=== PATIENT | male | born 1975 | race Caucasian/White ===

== ENCOUNTER 2017-11-18 15:48 | Inpatient (IN) | payer SELFPAY ==
--- NOTE | 2017-11-18 16:01 | EDPHY ---
H & P Time Seen by Provider: 11/18/17 16:01 Constitutional: Initial Vital Signs Temperature (C) 36.7 C 11/18/17 15:48 Heart Rate 103 H 11/18/17 15:48 Respiratory Rate 15 11/18/17 15:48 Blood Pressure 131/98 H 11/18/17 15:48 O2 Sat (%) 98 11/18/17 15:48 O2 Delivery Mode Room Air Allergies/Adverse Reactions: No Known Allergies Allergy (Unverified 11/18/17 15:57) Home Medications: Medication Instructions Recorded NK [No Known Home Meds] 11/18/17 Medical Decision Making ED Course/Re-evaluation: CHIEF COMPLAINT: Psychiatric evaluation HISTORY OF PRESENT ILLNESS: The patient is a 41 y/o male with psychiatric history who arrives from the [facility] on an M1 hold for grave disability. The M1 paperwork says the patient is "not able to care for himself, communicate effectively, and was recently refusing to eat. He presents as highly psychotic and delusional and unable to meet his essential needs at this time without assistance from others." He reports he has been in the senior living for 6 months for bradley offenses. He reports he has a history of a prior head injury and sinus issues. He goes on to tell me he has information about [place] on his phone and "I told them things of federal importance and they didn't question myself." He expresses concern that this is a "federal crisis." He denies recent injury, illness, or intoxicants. No acute medical complaints. REVIEW OF SYSTEMS: A comprehensive 10 system review of systems is otherwise negative aside from elements mentioned in the history of present illness and medical decision making. PHYSICAL EXAM: General Appearance: Alert, well hydrated, appropriate, and non-toxic appearing. Head: Atraumatic without scalp tenderness or obvious injury Eyes: Pupils equal, round, reactive to light and accommodation, EOMI, no trauma , no injection. Nose: Atraumatic, no rhinorrhea, clear. Throat: Mucus membranes moist. Neck: Supple, nontender, no lymphadenopathy. Respiratory: No retractions, no distress, no wheezes, and no accessory muscle use. Lungs are clear to auscultation bilaterally. Cardiovascular: Regular rate and rhythm, no murmurs, rubs, or gallops.Good capillary refill all extremities. Gastrointestinal: Abdomen is soft, nontender, non-distended, no masses, no rebound, no guarding, no peritoneal signs. Musculoskeletal: Normal active ROM of all extremities, atraumatic. Neurological: Alert, appropriate, and interactive. The patient has non-focal cranial nerves, motor, sensory, and cerebellar exam. Skin: No rashes, good turgor, no nodules on palpation. Past medical history: Psychiatric history, head injury Past surgical history: Noncontributory Family history: Noncontributory Social history: Has been in [facility] [place] senior living for last 6 months. Transient. DIFFERENTIAL DIAGNOSIS: The differential diagnosis for the patient's depression included but was not limited to functional and major depression, situational depression, medication side effect, drugs, and alcohol abuse. MEDICAL DECISION MAKING: Patient is in no acute distress and is hemodynamically stable. We are awaiting psychiatric team's evaluation. Patient has known history of psychiatric disorders and is here for evaluation. (Jose Rios) 2100: Discussed case with Psychiatric Services. She reports that the patient is psychotic. Dr. Archibald refuses the patient because "he can't get any information" on the patient. Per report, the senior living does not have information regarding the patient's psychiatric history and there is no psychiatric history in electronic health record. Dr. Maradiaga felt the patient could go back to senior living. However, senior living sent the patient to the emergency department because they were unable to care for the patient. Patient received Zyprexa orally in the emergency department. Patient will be re -evaluated by Psychiatric Services after the medication is given time to take effect. (Lynette Gillette) 0733: Patient resting comfortably. Here with psychosis, delusions. Patient had mental health evaluation. Patient was given Zyprexa earlier in the emergency department. He has been sleeping throughout the evening. Patient is pending mental health placement possibly [facility] later today. Signed over at 7: 00 a.m. Shift change to Dr. Desai. (Jakob Tolbert) - Data Points Laboratory Results: Laboratory Results 11/18/17 16:10 11/18/17 16:10 Medications Given: Discontinued Medications Olanzapine (Zyprexa Zydis) 10 mg PO EDNOW ONE Stop: 11/18/17 20:37 Last Admin: 10/12/18 20:44 Dose: 10 mg Departure - Departure Clinical Impression: Psychosis Qualifiers: Psychosis type: other Qualified Code(s): F28 - Other psychotic disorder not due to a substance or known physiological condition Condition: Good Referrals: NONE *PRIMARY CARE P,. [Primary Care Provider] - As per Instructions Report Scribed for: Jose Rios Report Scribed by: Bertha Carter Date of Report: 11/18/17 Time of Report: 16:12
[2017-11-18 16:23] LABS: PLATELET COUNT 248 10^3/uL (150-400)
[2017-11-18] MEDS ORDERED: OLANZapine DISINTEGR 10 MG TAB PO ONE (20:36)
--- NOTE | 2017-11-18 21:32 | ASMTLCPROG ---
Notes Note: Notes: Met with Patient and patient was unable to communicate due to being highly psychotic and delusional. Pt is unable to answer any questions, he is angry and threatening. Called P and they had no record of patient. Called [facility] and left a message for nurse requesting information on mental health history while PT has been at [facility]. Called on-call Psychiatrist, Dr. Archibald who said he wouldn't admit him to [address] [place] [address] here was more information on why he was at the ED, and what his baseline is. PT is in ED and will stay there until more information is obtained so he can be assessed. Date Signed: 11/18/2017 09:31 PM Electronically Signed By:Analy Graves
--- NOTE | 2017-11-19 07:21 | ASMTLCPROG ---
Notes Note: Notes: Met with this pt this morning. He is alert and oriented to place. His speech is clear but he cannot seem to provide much information about himself except to say he does not have a mental illness but had a bad head injury several years ago. Pt denies S/I, H/I.Denies A/H orV/H but does seem to be quite delusional about having information for the government from [facility] and that all his problems stem from the head injury. I spoke with the officer at the custodial who was able to say that pt had been in and out of custodial since July 2017 and was picked up for a failure to appear following a charge of "trying to influence others." From the record, it appeared that in September [facility] became involved, but I re-checked with [facility] and they have no record pertaining to this pt. I will speak to the Mental Health Team from the [facility] after their arrival to the office at 8:30. Date Signed: 11/19/2017 07:21 AM Electronically Signed By:Haley Obregon
--- NOTE | 2017-11-19 09:05 | ASMTLCPROG ---
Notes Note: Notes: Spoke with Mental Health Coordinator at the [facility]. She reports that she sent over notes on this pt but I am unable to locate them. She will fax notes directly to me. Basically, this pt has been in the [facility] for the past 6 months on very minor charges. He appears to be gravely disabled -psychotic and delusional but has refused medication and any treatment. his time in [facility] was up and the team sent him to the ED on an M-1 as he is gravely disabled. They were unable to obtain any collateral information from any source. Date Signed: 11/19/2017 09:04 AM Electronically Signed By:Haley Obregon
--- NOTE | 2017-11-19 09:38 | ASMTTLCEVL ---
[facility] Evaluation - Basic Information Evaluation Start Date and 11/19/2017 06:40 AM Time Hospital Status Answers: M1 Hold 72-hr M1 Hold Start Date 11/18/2017 02:55 PM and Time Patient statement Notes: "I have a head injury" Narrative Notes: This 41 y/o, , transient male was brought to the [facility] from [facility] - pt reports that he had been picked up because he was living on a bench. Snf staff determined that pt was gravely disabled - unable to care for himself, communicate meaningfully and refusing to eat. Pt has been in [facility]cc since July and appparently has refused medication, treatment and has not been eating. he has been observed responding to internal stimuli and appeared to be deeply psychotic and delusional. Diagnosis History Notes: unknown Prior suicide attempts Notes: pt denies Prior hospitalizations Notes: pt denies Treatment Responses Notes: unknown - has been refusing treatment and medication History of violence Notes: unknown - though [facility] personnel believes that he s not a threat to others Medications (name, dosage, route, freq uency) Notes: none Allergies/Reaction Notes: unknown Sleep Notes: pt reports that he is able to sleep Appetite Notes: Has refused to eat at times Medical/Surgical history Notes: Pt reports that he had a severe head injury several years ago Substance use history (frequency, intensity, his tory, duration) Notes: unknown - current u-tox is negative for all substances Family composition Notes: Pt reports that mother is . He reports some contact with father but does not know where he is or how to contact him Need for family Answers: No participation in patient's care Family psychiatric/substance abuse history Notes: unknown Developmental history Notes: Pt reports that he was born in [place] and graduated HS in [place] Marital status/children Notes: not , no children Living situation Notes: homeless Sexual history/orientation Notes: Unknown Peer support/family strengths Notes: Apppears to have no support Education level/history Notes: HS graduate - some college in [place] Work history Notes: Unknown Notes: Unknown Legal Notes: no pending charges Congregation/Spiritual Notes: Unknown Leisure Notes: Unknown Collateral Notes: Mental Gigi Team at the [facility] [phone] TLC Evaluation - Mental Status Exam Appearance: Answers: Unclean Unkempt Eye Contact: Answers: Avoiding Mood: Answers: Euthymic Affect: Answers: Distracted Suspicious Behavior: Answers: Cooperative Suspicious Speech: Answers: Clear Circumstantial Loose Associations Thought Process: Answers: Disorganized Oriented Loose Associations Paranoid Insight: Answers: Poor Judgement: Answers: Poor Delusions: Answers: Grandiose Paranoid Ideation Pt reported to have Answers: No suicidal/self-injuring ideation/behavior? Pt reported to be making Answers: No suicidal/self-injuring threats? Pt reported to have Answers: No aggression/assault ideation/behavior? Pt reported to be making Answers: No aggression/assault threats? Pt exhibits inability to Answers: Yes care for self/grave disability? Ideation/behavior is Answers: Yes chronic? TLC Evaluation - Suicide/Homicide Risk Suicide Risk Factors: Answers: < 20 or > 40 Years of Age Eating Disorders Financial Difficulties Inadequate Social Support Lack of Social Support Lack/Loss of Employment Psychotic Disorder Schizoaffective Disorder Homicide/violence risk Answers: Paranoid Ideation factors: Current Suicidal Answers: No Ideation? Current Suicidal Ideation Answers: No in the Past 48 Hours? Current Suicidal Ideation Answers: No in the Past Month? Suicide Internal Answers: None Protective Factors: Suicide External Answers: None Protective Factors: Ranking of patient's Answers: Low suicidal risk: Ranking of patient's Answers: Low homicidal risk: TLC Evaluation - Wrap-up AXIS I Diagnosis (include DSM-V and ICD-10 codes), must also be entered in [employer], which is the source of truth. Notes: 295.90 (F20.9) Schizophrenia Evaluation End Date and 11/19/2017 09:40 AM Time (HH:MM): Date Signed: 11/19/2017 09:37 AM Electronically Signed By:Haley Obregon
--- NOTE | 2017-11-19 10:09 | ASMTTCLDSP ---
TLC Discharge Disposition Disposition: Answers: Admit Disposition Notes: Notes: In consutation with ED MD, Dr. Gustavo Desai and economic history teacher psychiatrist, Dr Lan Archibald, both concurred that pt appears to meet the 27-65 criteria requiring in-pt psychiatric hospitalization as pt appears to be gravely disabled due to a mental illness condition. For inpatient Lan Archibald MD admission, the following psychiatrist agreed to accept patient for admission to Behavioral [facility] ([facility]): Type of Hold: Answers: M1/72-hour Hold Hold initiated by: Answers: Police Date Signed: 11/19/2017 10:09 AM Electronically Signed By:Haley Obregon
[2017-11-19] MEDS ORDERED: OLANZapine DISINTEGR 5 MG TAB ONE (13:44)
[2017-11-19] MEDS ORDERED: LORazepam 1 MG TAB ONE (13:45)
[2017-11-19] MEDS ORDERED: LORazepam 1 MG TAB PO ONE (14:00)
[2017-11-19] MEDS ORDERED: OLANZapine DISINTEGR 10 MG TAB PO ONE (14:00)
[2017-11-19] MEDS ORDERED: MAGNESIUM HYDROXIDE 30 ML UDCUP PO PRN (16:23)
[2017-11-19] MEDS ORDERED: ACETAMINOPHEN 325 MG TAB PO PRN (16:23)
[2017-11-19] MEDS ORDERED: NICOTINE POLACRILEX 2 MG GUM B PRN (16:23)
[2017-11-19] MEDS ORDERED: MAG HYDROX/AL HYDROX/SIMETH 30 ML UDCUP PO PRN (16:23)
[2017-11-19] MEDS: OLANZapine 10 MG TAB PO SCH (21:56)
[2017-11-19] MEDS: LORazepam 0.5 MG TAB PO PRN (21:56)
[2017-11-20] MEDS: OLANZapine DISINTEGR 10 MG TAB PO PRN (08:25)
[2017-11-20] MEDS: LORazepam 0.5 MG TAB PO PRN ×2 (08:25→20:35)
--- NOTE | 2017-11-20 09:40 | ASMTBHMTP ---
Master Treatment Plan Master Treatment Plan Answers: Impaired Reality for: Date: 11/20/2017 Diagnosis on Admission: Schizophrenia Expected length of stay: 3-5 Days Reason for admission: Notes: Per TLC Evaluation - This 44 year old, , transient male was brought to the [facility] from [facility] - pt reports that he had been picked up because he was living on a bench. [facility] staff determined that pt was gravely disabled - unable to care for himself, communicate meaningfully and refusing to eat. Pt. has been in half-way since July and apparently has refused medication, treatment and has not been eating. He has been observed responding to internal stimuli and appeared to be deeply psychotic and delusional. Patient's stated presenting problems: Notes: Severe head injury in 2007 Patient's goals for treatment: Notes: Not sure Patient's strengths: Notes: Polite Identify supports outside of hospital: Notes: No one Discharge criteria: Notes: Psychotic symptoms will be reduced or eliminated with return to baseline functioning in affect, thinking and behavior prior to discharge. Initial disposition plan/considerations: Notes: [place]eds [place] travel [place] due to the weather Master Treatment Plan Required Signatures Psychiatrist signature: Answers: Lan Archibald MD: RN on-shift signature: Answers: RN: Patient signature: Answers: Patient: Date Signed: 11/20/2017 09:39 AM Electronically Signed By:Sara Durán
--- NOTE | 2017-11-20 14:48 | PDGENHP ---
History and Physical - Chief Complaint Acute paranoid delusions - History of Present Illness Primary care provider: None HPI: 41-year-old male presents to the emergency department from intermediate on an M1 hold after exhibiting gradual onset of pervasive paranoid delusions characterized as concerns about the Federal government, [place], and associated with refusal to consume solids or liquids. The intermediate staff felt like the patient was unable to perform activities of daily living and was unsafe to be kept at the intermediate without additional mental health care. Upon my evaluation of the patient, he reports that the events over the past 24 hr have exacerbated his fatigue and have resulted in him just wanting to rest and sleep at the present time. The patient is unable to articulate the exact onset of his aforementioned symptoms and he does not engage in any further description. History Information - Allergies/Home Medication List Allergies/Adverse Reactions: No Known Allergies Allergy (Verified 11/19/17 11:01) Home Medications: NK [No Known Home Meds] 11/19/17 [Last Taken Unknown] I have personally reviewed and updated: family history, medical history, social history, surgical history - Past Medical History Additional medical history: Patient reported numerous traumatic brain injuries. Reported sinus issues - Surgical History Additional surgical history: Toenail surgery - Family History Additional family history: Patient denies any family history of mental illness - Social History Smoking Status: Never smoked Alcohol Use: None Drug Use: None Additional social history: Patient has been in intermediate for the past 6 months Review of Systems Review of Systems: ROS: 10pt was reviewed & negative except for what was stated in HPI & below Constitutional: Reports: other (Fatigue) Neurological: Reports: other (Paranoid delusions) Physical Exam Physical Exam: Temp Pulse Resp BP Pulse Ox 36.3 C 51 L 14 95/52 L 98 11/20/17 06:00 11/20/17 06:00 11/20/17 06:00 11/20/17 06:00 11/20/17 06:00 Constitutional: no apparent distress, not in pain, other (Thin appearing), No uncomfortable Eyes: PERRL, anicteric sclera, EOMI Ears, Nose, Mouth, Throat: moist mucous membranes, hearing normal, ears appear normal, no oral mucosal ulcers Cardiovascular: regular rate and rhythym, no murmur, rub, or gallop, No edema Respiratory: no respiratory distress, no rales or rhonchi, clear to auscultation Gastrointestinal: normoactive bowel sounds, soft, non-tender abdomen, no palpable masses, No distension Skin: other (No abrasions or lacerations on his wrists or ankles) Neurologic: AAOx3, No facial droop Psychiatric: not anxious, flat affect, other (Non engaging, does not consistently follow commands, poor eye contact), No agitated Lab Data & Imaging Review 11/18/17 16:10 11/18/17 16:10 WBC 4.40 10^3/uL (3.80-9.50) 11/18/17 16:10 RBC 4.90 10^6/uL (4.40-6.38) 11/18/17 16:10 Hgb 14.1 g/dL (13.7-17.5) 11/18/17 16:10 Hct 41.9 % (40.0-51.0) 11/18/17 16:10 MCV 85.5 fL (81.5-99.8) 11/18/17 16:10 MCH 28.8 pg (27.9-34.1) 11/18/17 16:10 MCHC 33.7 g/dL (32.4-36.7) 11/18/17 16:10 RDW 14.5 % (11.5-15.2) 11/18/17 16:10 Plt Count 248 10^3/uL (150-400) 11/18/17 16:10 MPV 10.9 fL (8.7-11.7) 11/18/17 16:10 Neut % (Auto) 62.3 % (39.3-74.2) 11/18/17 16:10 Lymph % (Auto) 27.5 % (15.0-45.0) 11/18/17 16:10 Slope % (Auto) 8.4 % (4.5-13.0) 11/18/17 16:10 Eos % (Auto) 1.1 % (0.6-7.6) 11/18/17 16:10 Baso % (Auto) 0.5 % (0.3-1.7) 11/18/17 16:10 Nucleat RBC Rel Count 0.0 % (0.0-0.2) 11/18/17 16:10 Absolute Neuts (auto) 2.74 10^3/uL (1.70-6.50) 11/18/17 16:10 Absolute Lymphs (auto) 1.21 10^3/uL (1.00-3.00) 11/18/17 16:10 Absolute Monos (auto) 0.37 10^3/uL (0.30-0.80) 11/18/17 16:10 Absolute Eos (auto) 0.05 10^3/uL (0.03-0.40) 11/18/17 16:10 Absolute Basos (auto) 0.02 10^3/uL (0.02-0.10) 11/18/17 16:10 Absolute Nucleated RBC 0.00 10^3/uL (0-0.01) 11/18/17 16:10 Immature Gran % 0.2 % (0.0-1.1) 11/18/17 16:10 Immature Gran # 0.01 10^3/uL (0.00-0.10) 11/18/17 16:10 Sodium 144 mEq/L (135-145) 11/18/17 16:10 Potassium 4.0 mEq/L (3.3-5.0) 11/18/17 16:10 Chloride 105 mEq/L (97-110) 11/18/17 16:10 Carbon Dioxide 30 mEq/l (22-31) 11/18/17 16:10 Anion Gap 9 mEq/L (6-14) 11/18/17 16:10 BUN 9 mg/dL (7-23) 11/18/17 16:10 Creatinine 0.9 mg/dL (0.7-1.3) 11/18/17 16:10 Estimated GFR > 60 11/18/17 16:10 Glucose 106 mg/dL (70-100) H 11/18/17 16:10 Calcium 9.5 mg/dL (8.5-10.4) 11/18/17 16:10 Salicylates < 1.0 mg/dL (2.0-20.0) L 11/18/17 16:10 Urine Opiates Screen NEGATIVE (NEGATIVE) 11/18/17 16:10 Acetaminophen < 10 mcg/mL (10-30) L 11/18/17 16:10 Urine Barbiturates NEGATIVE (NEGATIVE) 11/18/17 16:10 Ur Phencyclidine Scrn NEGATIVE (NEGATIVE) 11/18/17 16:10 Ur Amphetamine Screen NEGATIVE (NEGATIVE) 11/18/17 16:10 U Benzodiazepines Scrn NEGATIVE (NEGATIVE) 11/18/17 16:10 Urine Cocaine Screen NEGATIVE (NEGATIVE) 11/18/17 16:10 U Marijuana (THC) Screen NEGATIVE (NEGATIVE) 11/18/17 16:10 Ethyl Alcohol < 10 mg/dL (0-10) 11/18/17 16:10 Assessment & Plan Assessment: 41-year-old male presenting with acute paranoid delusions Plan: 1. Paranoid delusions. Acute, unclear whether these are acute manifestations of a chronic mental illness verses incarceration psychosis -defer formal workup, diagnosis, treatment plan to the primary behavioral health team -patient remains on M1 hold 2. Traumatic brain injury. Reviewed outside records including emergency department report by Dr. Jose Rios from 11/18/2017, reporting the patient endorsed to him that he had had numerous head injuries -recurrent head injuries over time may certainly be contributing to any underlying mental health issues contributing to above -if it is determined that the patient has had numerous head injuries which may be connected to his underlying mental health, would recommend outpatient neurology or TBI specialist follow-up, potentially Dr. Ramirez Wisner [facility] will sign off on the patient's care at this time, please reconsult with us at [phone] Bowen on site if additional issues are identified.
--- NOTE | 2017-11-20 14:58 | ASMTCMCOM ---
CM Note CM Note Notes: Pt. and CC completed MTP and placed in chart. Pt. stated he was having legal issues in [place], [place] and possibly [place]. Pt. stated he believes he has completed everything with the [place] police but is unsure if he has any legal issues in [place] or [place]. Pt. stated when he discharges he "need to go south". Pt. stated his ideal destination is "31 [place]", but did not clarify. Pt. denied all substance use. Pt. denied SI, HI, AVH and paranoia. Pt. stated he has been hospitalized in the past and was misdiagnosed with Bipolar. Pt. stated he does not want any follow up appointments, as he will be leaving town after discharge. Pt. presents as alert, disorganized, guarded, blunt affect, minimal eye contact and withdrawn to his room. Staff report pt. sleeping at least 12 hours and is medication compliant. Date Signed: 11/20/2017 02:58 PM Electronically Signed By:Sara Durán
--- NOTE | 2017-11-20 17:04 | BAPA ---
DATE OF SERVICE: 11/20/2017 CHIEF COMPLAINT: "I have a head injury." HISTORY OF PRESENT ILLNESS: Patient is a 41-year-old homeless man brought to the [facility] ED from [facility]. Correction staff determined that the patient was gravely disabled, unable to care for himself, refusing to eat, and not making sense. Patient has been in senior care since July and ap parently had refused medication. He has been observed by senior care staff responding to internal stimuli, and when evaluated in the ED, he appeared to be psychotic and delusional. [facility] hold notes "the patient is not able to care for himself, co mmunicate effectively, and was recently refusing to eat. He presents as highly psychotic and delusio nal and unable to meet his essential needs at this time without assistance from others." The hospitalist, Dr. Muñoz, saw the patient on 11/20, noted that the patient had "pervasive paranoid delusions characterized as concerns about the Federal government, Al-Qaeda, and associated with refu torrie to consume solids or liquids." When the hospitalist saw the patient on the inpatient Behavioral Health Services Unit, the patient states that he was experiencing fatigue and tiredness as a result o f his experiences over the last 24 hours. Patient told the hospitalist that he just wanted to "rest and sleep." When this MD saw the patient on the inpatient Behavioral Health Services Unit, he observed him shortl y after his admission on 11/20/2017. The patient was extremely restless, agitated, talking almost no nstop, not making very much sense, rambling, delusional, talking about threats to him from various so urces, including conspiracy theories about the government, about terrorist, about Al-Qaeda. When MD saw the patient on 11/21/2017, his presentation was very different. He was extremely guarded, made l imited eye contact, had very paucity of speech and impoverished thought content. He did seem to be i nternally preoccupied, but he was not engaging in rambling or pressured speech, was much less willing to converse with the MD and the rest of the staff. The only thing that he would say was that he wan dickson to "go [place]" get away from the cold weather in [place]. PAST PSYCHIATRIC HISTORY: Not much is known about this patient's history. He is extremely unreliabl e historian due to his disorganized thought process and his delusions. He states that he was picked up by Asael for "sitting on a park bench." It is unclear how long he has been in [facility] senior care. [facility] records indicated the patient has been in senior care since July of 2017. It is unknown whether or not he received a forensic psychiatric evaluation. Nothing is known about any prior hospitalizat ions or any recent mental health treatment. He was not taking medications prior to going to senior care. Kendal cisneros also had refused to take medications while he was in senior care. ALLERGIES: The patient has known drug allergies. MEDICATIONS: Currently not taking any medications. There is also no information about any prior med ication history. LABORATORY DATA: Labs were done in the [facility] ED. White cell count was 4.4, hemoglobin 14.1, hem atocrit 41.9, platelet count 248. Sodium 144, potassium 4.0, chloride 105, BUN 9, creatinine 0.9, gl ucose 106, calcium 9.5. Urine drug screen was negative for all drugs of abuse. Salicylate and aceta minophen levels were undetected. There was no ethyl alcohol in his system. 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 Does not know when the reported injuries occurred. He als o reports that he has had sinus issues in the past. He also told the hospitalist, Dr. Muñoz, that kendal cisneros had a prior toenail surgery, but did not provide any details. SOCIAL HISTORY: Information about social history was obtained from the [facility] records. The patient rep orts that he was born in [facility] and graduated from high school in [place]. He is not homa ied, has no children. He has been homeless for an indefinite period of time. He said he did graduat e high school and attended some college in [place], but is unable to say where or what he studied. Nothing is known about his employment history. It is not known how long he has been in the [facility]. He does not have Medicaid services in this state at the current time. FAMILY HISTORY: Patient denies any family history of mental illness. SUBSTANCE USE HISTORY: The patient states that he has never smoked, does not use drugs or alcohol. His urine drug screen was negative because he had been in senior care for at least the last 4-6 months. TRAUMA HISTORY: The patient does not report any history of physical, sexual, or emotional abuse. LEGAL HISTORY: Patient was recently discharged from the [facility]. It is unclear what the charges were or whether not the patient has any outstanding legal issues. MENTAL STATUS EXAMINATION: This is an average height, well-developed, disheveled, unkempt man wearing a hospital gown, pacing. He is alert and oriented x1, only to person. Does not know whe re he is or what the date is or what his current situation is. His affect is flat. He makes poor ey e contact staring at the ground. Speech rate and volume were very loud and rapid on his first day in the hospital. Today on 11/20, he has paucity of speech, is very guarded. His intellectual function appears to be average based upon his educational history, although it is difficult to assess his voc abulary and fund of knowledge. He denies feeling sad, helpless, hopeless, worthless, anxious. He de nies experiencing auditory or visual hallucinations, although he presents extremely disorganized and responding to internal stimuli, internally preoccupied, and with numerous paranoid delusions. He exh ibits no signs or symptoms of mio. He does not have pressured speech or racing thoughts. He does not have increase in goal-directed activity or decreased need for sleep. He does not have elated, el evated mood, or grandiose delusions. His thought process is disorganized and illogical. His insight and judgment are both impaired as evidenced by not eating, not taking medications. IMPRESSION: 1. Psychosis, not otherwise specified. 2. Psychosocial stressors, include homeless, unemployed, financial problems, and lack of social supp ort, no family connections, noncompliance with outpatient treatment. No current mental health provid ers. Recently spent several months in [facility] senior care. No known social or housing resources at the current time. PLAN: 1. Admit to the inpatient Behavioral Health Services Unit on [address] on an M1 hold. 2. Monitor closely for safety. Patient is currently not exhibiting any signs of aggression or unsaf e behavior. He is still psychotic, paranoid, delusional, guarded, disorganized, illogical. He is de nying any thoughts plans or intent to hurt himself or anyone else. 3. Will continue to monitor and observe the patient. He has been willing to take medications both i n the emergency department and on . has started the patient on a scheduled dose of olanzap ine 10 mg p.o. q.h.s. He also has a p.r.n. dose of olanzapine 10 mg p.o. q.4 hours, not to exceed a total daily dose of 30 mg. Patient also has p.r.n. Ativan 0.5-1 mg p.o. q.4 hours for psychosis and agitation. Despite records indicating that the patient was refusing psychiatric medications in senior care, he has given consent and been compliant with taking medications here in the hospital. 4. Very little is known about this patient's history, both his medical history and psychiatric histo ry. Will attempt to obtain collateral information; however, the patient has not identified any famil y members or providers that we can contact. If we are able to get this information from the patient, we will request releases of information and try to obtain those records. 5. in school suspension coordinator will try to reach out to any family or support the patient may have. Informatio n in the records indicate that he did go to high school and some college in [place]. It is possib le he may have family members or relatives or friends there we can attempt to contact. 6. Estimated length of stay is 5-7 days. /[id number]/MODL
[2017-11-20] MEDS: OLANZapine 10 MG TAB PO SCH (20:35)
[2017-11-21] MEDS: OLANZapine DISINTEGR 10 MG TAB PO PRN (08:48)
--- NOTE | 2017-11-21 12:56 | SOAPPROG ---
SOAP Progress Note Assessment/Plan: Assessment: Unspecified psychosis. Patient is not safe to discharge at this time as patient continues to exhibit signs of psychosis, and express psychosis symptoms. Patient requires continued inpatient care because of current acute psychosis, and requires inpatient level of care to stabilize in order to no longer be gravely disabled due to mental illness. Patient could benefit from continued inpatient hospitalization for crisis stabilization, safety, and medication evaluation. Plan: (1) Psychotropic medications: After reviewing options, risks, and benefits patient agrees to continue current medications. No medication changes at this time as more time is needed to determine ongoing tolerability and efficacy. Plan is to continue to observe patient for response and side effects from medications, and ongoing monitoring and evaluation. (2) Review with patient informed consent and recommendations for psychotropic medication treatment listed below (3) Labs: no additional labs at this time (4) Therapy: continue milieu and group therapy (5) Further investigation including gathering information from patients relatives and review of past case records to inform treatment plan. (6) Safety/Wellness plan and follow-up outpatient appointments to be established prior to discharge. Next steps are for patient to meet with critical care nurse practitioner to plan a safe discharge plan and establish outpatient services for ongoing treatment. (7) Confer with inpatient treatment team regarding treatment plan. (8) Legal status: M1, agrees to sign-in voluntary (9) Consider discharge next week if patient is in stable condition, safe, and has a safe discharge plan. PSYCHOTROPIC MEDICATION TREATMENT INFORMED CONSENT and RECOMMENDATIONS: Review nature of condition, diagnosis, and prognosis. Review nature and purpose of psychotropic medication treatment. Review type of psychotropic medications being ordered. Review risk and benefits of psychotropic medication treatment. Review probable length of time patient will need to take medications. Review risk and benefits of not undergoing psychotropic medication treatment. Review alternative treatments to psychotropic medications. Review psychotropic medications contraindications, drug-drug interactions, side effects, and importance of reporting any side effects to a psychiatric provider or nurse during inpatient hospitalization, and upon discharge to patients psychiatric outpatient provider, primary care provider, or other health client care coordinator. Review importance of asking a nurse, psychiatric provider, or primary care provider any questions or problems concerning the psychotropic medications. Verify patient understands the information that has been provided, and understands, accepts, and agrees to psychotropic medications. Review patients safety plan and importance of patient to report to staff while hospitalized if patient is ever a danger to self/others, or unable to care for self, and upon discharge, the importance for patient to contact [facility] or [facility], or go to the nearest emergency room, if patient is ever a danger to self/others, or unable to care for self. Recommend that upon discharge patient establish medication management treatment with a psychiatric provider, establishes routine therapy appointments, and follow-up with primary care provider. Verify patient understands and agrees to these recommendations. 11/21/17 12:58 Subjective: Following up with patient for evaluation of psychosis and safety. With regard to why patient is hospitalized, patient states to this ENVIRONMENTAL SCIENCE INSTRUCTOR, "I am here because lobsters require boiling before you can eat them, and they are boiled alive. Do you realized Al-Qaeda was on a computer, yeah, do you see what I am saying? The lobsters are boiled before they are eaten. I am being detained, but Al- Qaeda is not, that makes no sense." Patient expresses the following psychiatric symptoms none. Patient reports taking medications as prescribed, and describes response to medications as "not sure." Patient does not report undesirable side effects from the medications, and agrees to continue current medications. Patient reports appetite as good, and reports eating all meals. Patient describes getting 6 hours of sleep. Patient agrees to voluntary hospitalization. Objective: Vital Signs Temp Pulse Resp BP Pulse Ox 36.3 C 69 14 94/59 L 97 11/21/17 06:00 11/21/17 06:00 11/21/17 06:00 11/21/17 06:00 11/21/17 06:00 NURSING REPORT: Consulted with nursing for update on patients progress in treatment. Nurses report patient is not engaged in treatment, is not attending groups, slept 10 hours, is withdrawn to his room, comes out for meals, expresses the following psychiatric symptoms: anxiety; exhibits the following psychiatric symptoms: disorganized, paranoid, illogical, non-linear; is eating all meals, is agreeable to medications and taking as prescribed with no report of side effects, with no s/s of EPS/akathisia, and denies SI/HI, denies A/V hallucinations, and denies delusions. WAREHOUSE DISTRIBUTION ASSOCIATE UPDATE: establishing discharge plan with [facility] for follow-up after discharge. MSE: The patient is a well-nourished male looking stated chronological age. Attire is inappropriate and dress is casual and hospital garb combination. Grooming status is inappropriate and disheveled. Ambulation is independent. Gait is normal and coordinated. Posture is normal and relaxed. Eye contact is inappropriate, and avoided. Motor activity is appropriate with purposeful, organized, coordinated movements; with no involuntary movements. Attitude is uncooperative and guarded. Patient appears distractible and does not relate well to this interviewer. Language production is spontaneous. R/R/V are normal. Articulation is clear. Patient reports mood as okay with incongruent and expansive affect. Patients thought process is disorganized, non-linear, illogical, with loose associations, tangential thought. Patient does not report suicidal/homicidal thoughts, ideas, or plans. Patient denies auditory, visual hallucinations. Patient reports paranoid delusions. Patient does not appear to be attending to internal stimuli. Patients attention and concentration are poor. Patient is oriented to person, place. Patients insight is poor. Patients judgment is poor. No evidence of gross cognitive dysfunction at any point during the interview. No evidence of apparent dysfunction in recent or remote memory. - Time Spent With Patient Time Spent With Patient: 15 minutes, met with patient individually. - Pending Discharge Pending Discharge Within 24 Hours: No Pending Discharge Within 48 Hours: No ICD10 Worksheet Patient Problems: Problems Problem Status Onset Psychosis Acute
[2017-11-21] MEDS ORDERED: OLANZapine DISINTEGR 10 MG TAB PO PRN (13:01)
[2017-11-21] MEDS: OLANZapine 10 MG TAB PO SCH (21:05)
--- NOTE | 2017-11-22 08:41 | SOAPPROG ---
SOAP Progress Note Assessment/Plan: Assessment: Unspecified psychosis. Patient is not safe to discharge at this time as patient continues to exhibit signs of psychosis, and express psychosis symptoms. Patient requires continued inpatient care because of current acute psychosis, and requires inpatient level of care to stabilize in order to no longer be gravely disabled due to mental illness. Patient could benefit from continued inpatient hospitalization for crisis stabilization, safety, and medication evaluation. Plan: (1) Psychotropic medications: After reviewing options, risks, and benefits patient agrees to continue current medications. No medication changes at this time as more time is needed to determine ongoing tolerability and efficacy. Patient has shown some response to Zyprexa Zydis for acute psychosis and agitation, will continue to evaluate response before making change. Plan is to continue to observe patient for response and side effects from medications, and ongoing monitoring and evaluation. (2) Review with patient informed consent and recommendations for psychotropic medication treatment listed below (3) Labs: no additional labs at this time (4) Therapy: continue milieu and group therapy (5) Further investigation including gathering information from patients relatives and review of past case records to inform treatment plan. (6) Safety/Wellness plan and follow-up outpatient appointments to be established prior to discharge. Next steps are for patient to meet with cna caregiver to plan a safe discharge plan and establish outpatient services for ongoing treatment. (7) Confer with inpatient treatment team regarding treatment plan. (8) Legal status: [facility] (9) Consider discharge next week if patient is in stable condition, safe, and has a safe discharge plan. PSYCHOTROPIC MEDICATION TREATMENT INFORMED CONSENT and RECOMMENDATIONS: Review nature of condition, diagnosis, and prognosis. Review nature and purpose of psychotropic medication treatment. Review type of psychotropic medications being ordered. Review risk and benefits of psychotropic medication treatment. Review probable length of time patient will need to take medications. Review risk and benefits of not undergoing psychotropic medication treatment. Review alternative treatments to psychotropic medications. Review psychotropic medications contraindications, drug-drug interactions, side effects, and importance of reporting any side effects to a psychiatric provider or nurse during inpatient hospitalization, and upon discharge to patients psychiatric outpatient provider, primary care provider, or other health director of career resources. Review importance of asking a nurse, psychiatric provider, or primary care provider any questions or problems concerning the psychotropic medications. Verify patient understands the information that has been provided, and understands, accepts, and agrees to psychotropic medications. Review patients safety plan and importance of patient to report to staff while hospitalized if patient is ever a danger to self/others, or unable to care for self, and upon discharge, the importance for patient to contact [facility] or [facility], or go to the nearest emergency room, if patient is ever a danger to self/others, or unable to care for self. Recommend that upon discharge patient establish medication management treatment with a psychiatric provider, establishes routine therapy appointments, and follow-up with primary care provider. Verify patient understands and agrees to these recommendations. 11/22/17 08:39 Subjective: Following up with patient for evaluation of psychosis and safety. Patient states, "We have [employer] restaurants and you are doing nothing about them. You call yourself a psychologist? The Wilber-Estephania or Armin or whatever that is." Patient expresses the following psychiatric symptoms none. Patient reports taking medications as prescribed, and describes response to medications as not sure. Patient does not report undesirable side effects from the medications, and agrees to continue current medications. Patient reports appetite as good, and reports eating all meals. Patient describes getting 6 hours of sleep. Objective: Vital Signs Temp Pulse Resp BP Pulse Ox 36.6 C 76 14 89/57 L 96 11/22/17 06:00 11/22/17 06:00 11/22/17 06:00 11/22/17 06:00 11/22/17 06:00 NURSING REPORT: Consulted with nursing for update on patients progress in treatment. Nurses report patient is not engaged in treatment, is not attending groups, slept 10 hours, is withdrawn to his room, in bed majority of the day, comes out for meals, expresses the following psychiatric symptoms: anxiety; exhibits the following psychiatric symptoms: disorganized, paranoid, illogical, non-linear; is eating all meals, is agreeable to medications and taking as prescribed with no report of side effects, with no s/s of EPS/akathisia, and denies SI/HI, denies A/V hallucinations, and denies delusions. RFID ENGINEER UPDATE: establishing discharge plan with [facility] for follow-up after discharge. MSE: The patient is a well-nourished male looking stated chronological age. Attire is inappropriate and dress is casual and hospital garb combination. Grooming status is inappropriate and disheveled. Ambulation is independent. Gait is normal and coordinated. Posture is normal and relaxed. Eye contact is inappropriate, and avoided. Motor activity is appropriate with purposeful, organized, coordinated movements; with no involuntary movements. Attitude is uncooperative and guarded. Patient appears distractible and does not relate well to this interviewer. Language production is spontaneous. R/R/V are normal. Articulation is clear. Patient reports mood as okay with incongruent and expansive affect. Patients thought process is disorganized, non-linear, illogical, with loose associations, tangential thought. Patient does not report suicidal/homicidal thoughts, ideas, or plans. Patient denies auditory, visual hallucinations. Patient reports paranoid delusions. Patient does not appear to be attending to internal stimuli. Patients attention and concentration are poor. Patient is oriented to person, place. Patients insight is poor. Patients judgment is poor. No evidence of gross cognitive dysfunction at any point during the interview. No evidence of apparent dysfunction in recent or remote memory. - Time Spent With Patient Time Spent With Patient: 15 minutes, met with patient individually. - Pending Discharge Pending Discharge Within 24 Hours: No Pending Discharge Within 48 Hours: No ICD10 Worksheet Patient Problems: Problems Problem Status Onset Psychosis Acute
[2017-11-22] MEDS: OLANZapine 10 MG TAB PO SCH ×2 (19:56→19:59)
[2017-11-23] MEDS ORDERED: OLANZapine 10 MG TAB PO SCH (08:10)
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
--- NOTE | 2017-11-23 10:51 | ASMTCMCOM ---
CM Note CM Note Notes: Pt. was laying in bed with the blankets covering him, when CC approached. Pt. reports "doing alright". Pt. stated his "sleep was about the same". Pt. reports his medication makes him tired. Pt. reports "eating enough". Pt. stated "warmer weather is an option" when asked about his discharge plan. Pt. stated "[place] be" about where he plans to go after discharge. Pt. stated "there is no with in stay" when asked who he would stay with after discharge. Pt. denied SI, HI, AVH, and paranoia. Pt. presents as alert, guarded, not groomed, fair eye contact and speaking in a joanna. Staff report pt. sleeping 12.5 hours and being medication compliant. Date Signed: 11/23/2017 10:50 AM Electronically Signed By:Sara Durán
[2017-11-23] MEDS ORDERED: OLANZapine DISINTEGR 10 MG TAB PO SCH (21:00)
[2017-11-24] MEDS ORDERED: OLANZapine DISINTEGR 10 MG TAB PO SCH (08:20)
--- NOTE | 2017-11-24 08:30 | SOAPPROG ---
SOAP Progress Note Assessment/Plan: Assessment: Schizophrenia, acute psychosis. No change (see Subjective and Objective). Patient is not safe to discharge at this time as patient continues to exhibit signs of psychosis, and express psychosis symptoms. Patient requires continued inpatient care because of current acute psychosis, and requires inpatient level of care to stabilize in order to no longer be gravely disabled due to mental illness. Patient could benefit from continued inpatient hospitalization for crisis stabilization, safety, and medication evaluation. Plan: (1) Psychotropic medications: After reviewing options, risks, and benefits patient agrees to trial of Risperdal M-tab 1 mg QD and taper Zyprexa Zydis to 10 mg po QHS with plan to switch to Risperdal M-tab and ARROYO prior to discharge. Plan is to continue to observe patient for response and side effects from medications, and ongoing monitoring and evaluation. (2) Review with patient informed consent and recommendations for psychotropic medication treatment listed below (3) Labs: no additional labs at this time (4) Therapy: continue milieu and group therapy (5) Further investigation including gathering information from patients relatives and review of past case records to inform treatment plan. (6) Safety/Wellness plan and follow-up outpatient appointments to be established prior to discharge. Next steps are for patient to meet with healthcare architect to plan a safe discharge plan and establish outpatient services for ongoing treatment. (7) Confer with inpatient treatment team regarding treatment plan. (8) Legal status: [facility] (9) Consider discharge next week if patient is in stable condition, safe, and has a safe discharge plan. PSYCHOTROPIC MEDICATION TREATMENT INFORMED CONSENT and RECOMMENDATIONS: Review nature of condition, diagnosis, and prognosis. Review nature and purpose of psychotropic medication treatment. Review type of psychotropic medications being ordered. Review risk and benefits of psychotropic medication treatment. Review probable length of time patient will need to take medications. Review risk and benefits of not undergoing psychotropic medication treatment. Review alternative treatments to psychotropic medications. Review psychotropic medications contraindications, drug-drug interactions, side effects, and importance of reporting any side effects to a psychiatric provider or nurse during inpatient hospitalization, and upon discharge to patients psychiatric outpatient provider, primary care provider, or other health long term care pharmacist. Review importance of asking a nurse, psychiatric provider, or primary care provider any questions or problems concerning the psychotropic medications. Verify patient understands the information that has been provided, and understands, accepts, and agrees to psychotropic medications. Review patients safety plan and importance of patient to report to staff while hospitalized if patient is ever a danger to self/others, or unable to care for self, and upon discharge, the importance for patient to contact [facility] or [facility], or go to the nearest emergency room, if patient is ever a danger to self/others, or unable to care for self. Recommend that upon discharge patient establish medication management treatment with a psychiatric provider, establishes routine therapy appointments, and follow-up with primary care provider. Verify patient understands and agrees to these recommendations. 11/24/17 08:32 Subjective: Following up with patient for evaluation of psychosis and safety. When this COMPUTER TEACHER asks patient how he is doing patient states, "Better, a little bit, it is a residency of my mind." When this COMPUTER TEACHER asks patient where he is going to go after discharge patient reports, "I am not from anywhere and therefore will not return anywhere, it is a residency that is not here but in my mind. I am an heir to a mansion in [place], I have lived in [place], [place], [place] , and [place]. I am not a resident of [place], I am here as a witness." Patient does not report undesirable side effects from the medications, and agrees to continue current medications. Patient reports appetite as good, and reports eating all meals. Patient describes getting 8 hours of sleep. Patient agrees to trial of Risperdal M-tab 1 mg SL QD and taper with plan to discontinue Zyprexa Zydis to 10 mg po QHS and switch to Risperdal. Objective: Vital Signs Temp Pulse Resp BP Pulse Ox 36.7 C 56 L 16 101/54 L 95 11/24/17 06:00 11/24/17 06:00 11/24/17 06:00 11/24/17 06:00 11/24/17 06:00 NURSING REPORT: Consulted with nursing for update on patients progress in treatment. Nurses report patient is not engaged in treatment, is not attending groups, slept 12.5 hours, is withdrawn to his room, in bed majority of the day, comes out for meals, expresses the following psychiatric symptoms: anxiety; exhibits the following psychiatric symptoms: severely disorganized, paranoid, illogical, non-linear; is eating all meals, is agreeable to medications and taking as prescribed with no report of side effects, with no s/s of EPS/ akathisia, and denies SI/HI, denies A/V hallucinations; reports paranoid delusions. AIRPORT ELECTRICIAN UPDATE: establishing discharge plan with [facility] for follow-up after discharge. MSE: The patient is a well-nourished male looking stated chronological age. Attire is inappropriate and dress is casual and hospital garb combination. Grooming status is inappropriate and disheveled. Ambulation is independent. Gait is normal and coordinated. Posture is normal and relaxed. Eye contact is inappropriate, and avoided. Motor activity is appropriate with purposeful, organized, coordinated movements; with no involuntary movements. Attitude is uncooperative and guarded. Patient appears distractible and does not relate well to this interviewer. Language production is spontaneous. R/R/V are normal. Articulation is clear. Patient reports mood as okay with incongruent and expansive affect. Patients thought process is severely disorganized, non- linear, illogical, with loose associations, tangential thought. Patient does not report suicidal/homicidal thoughts, ideas, or plans. Patient denies auditory, visual hallucinations. Patient reports paranoid delusions. Patient does not appear to be attending to internal stimuli. Patients attention and concentration are poor. Patient is oriented to person. Patients insight is poor. - Time Spent With Patient Time Spent With Patient: 15 minutes, met with patient individually. - Pending Discharge Pending Discharge Within 24 Hours: No Pending Discharge Within 48 Hours: No ICD10 Worksheet Patient Problems: Problems Problem Status Onset Psychosis Acute
[2017-11-24] MEDS ORDERED: RISPERIDONE 1 MG ODT TAB SL SCH (09:00)
--- NOTE | 2017-11-24 15:21 | ASMTCMCOM ---
CM Note CM Note Notes: Client continues to isolate in his room, sleeping for most of the day. Client would not sign the REGGIE for [facility] again. Pt did not want to speak to this health technical writer today.* Date Signed: 11/24/2017 03:20 PM Electronically Signed By:Akbar Izquierdo
[2017-11-25] MEDS ORDERED: RISPERIDONE 1 MG ODT TAB SL SCH (07:38)
--- NOTE | 2017-11-25 07:55 | SOAPPROG ---
SOAP Progress Note Assessment/Plan: Assessment: Schizophrenia, acute psychosis, disorganized, withdrawn. No change (see Subjective and Objective). Patient is not safe to discharge at this time as patient continues to exhibit signs of psychosis, and express psychosis symptoms. Patient requires continued inpatient care because of current acute psychosis, and requires inpatient level of care to stabilize in order to no longer be gravely disabled due to mental illness. Patient could benefit from continued inpatient hospitalization for crisis stabilization, safety, and medication evaluation. Plan: (1) Psychotropic medications: After reviewing options, risks, and benefits patient agrees to trial of Risperdal M-tab 2 mg QD and taper Zyprexa Zydis to 10 mg po QHS with plan to switch to Risperdal M-tab and ARROYO prior to discharge. Plan is to continue to observe patient for response and side effects from medications, and ongoing monitoring and evaluation. (2) Review with patient informed consent and recommendations for psychotropic medication treatment listed below (3) Labs: no additional labs at this time (4) Therapy: continue milieu and group therapy (5) Further investigation including gathering information from patients relatives and review of past case records to inform treatment plan. (6) Safety/Wellness plan and follow-up outpatient appointments to be established prior to discharge. Next steps are for patient to meet with field care coordinator to plan a safe discharge plan and establish outpatient services for ongoing treatment. (7) Confer with inpatient treatment team regarding treatment plan. (8) Legal status: [facility] (9) Consider discharge next week if patient is in stable condition, safe, and has a safe discharge plan. PSYCHOTROPIC MEDICATION TREATMENT INFORMED CONSENT and RECOMMENDATIONS: Review nature of condition, diagnosis, and prognosis. Review nature and purpose of psychotropic medication treatment. Review type of psychotropic medications being ordered. Review risk and benefits of psychotropic medication treatment. Review probable length of time patient will need to take medications. Review risk and benefits of not undergoing psychotropic medication treatment. Review alternative treatments to psychotropic medications. Review psychotropic medications contraindications, drug-drug interactions, side effects, and importance of reporting any side effects to a psychiatric provider or nurse during inpatient hospitalization, and upon discharge to patients psychiatric outpatient provider, primary care provider, or other health personal care assistant. Review importance of asking a nurse, psychiatric provider, or primary care provider any questions or problems concerning the psychotropic medications. Verify patient understands the information that has been provided, and understands, accepts, and agrees to psychotropic medications. Review patients safety plan and importance of patient to report to staff while hospitalized if patient is ever a danger to self/others, or unable to care for self, and upon discharge, the importance for patient to contact [facility] or [facility], or go to the nearest emergency room, if patient is ever a danger to self/others, or unable to care for self. Recommend that upon discharge patient establish medication management treatment with a psychiatric provider, establishes routine therapy appointments, and follow-up with primary care provider. Verify patient understands and agrees to these recommendations. 11/25/17 07:54 Subjective: Following up with patient for evaluation of psychosis and safety. When this TOOL AND CUTTER GRINDER asks patient if he is better able to organize his thoughts patient states, " This is not possible, I have never been able to do that, organize my thoughts." When this TOOL AND CUTTER GRINDER asks patient where he plans to go after discharging from hospital patient reports, "I plan on going [place], that is where I plan to go to, [place]." Patient does not report undesirable side effects from the medications, and agrees to continue current medications. Patient reports appetite as good, and reports eating all meals. Patient describes getting 8 hours of sleep. Patient agrees to trial of Risperidal M-tab 2 mg SL QD and continue taper to discontinue Zyprexa Zydis with current dose 10 mg po QHS. Objective: Vital Signs Temp Pulse Resp BP Pulse Ox 36.8 C 61 16 99/59 L 94 11/25/17 06:00 11/25/17 06:00 11/25/17 06:00 11/25/17 06:00 11/25/17 06:00 NURSING REPORT: Consulted with nursing for update on patients progress in treatment. Nurses report patient is not engaged in treatment, is not attending groups, slept 12.5 hours, is withdrawn to his room, in bed majority of the day, comes out for meals, expresses the following psychiatric symptoms: anxiety; exhibits the following psychiatric symptoms: disorganized, paranoid, illogical, non-linear; is eating all meals, is agreeable to medications and taking as prescribed with no report of side effects, with no s/s of EPS/akathisia, and denies SI/HI, denies A/V hallucinations, and denies delusions. LOCOMOTIVE SUPERVISOR UPDATE: establishing discharge plan with [facility] for follow-up after discharge. MSE: The patient is a well-nourished male looking stated chronological age. Attire is inappropriate and dress is casual and hospital garb combination. Grooming status is inappropriate and disheveled. Ambulation is independent. Gait is normal and coordinated. Posture is normal and relaxed. Eye contact is inappropriate, and avoided. Motor activity is appropriate with purposeful, organized, coordinated movements; with no involuntary movements. Attitude is uncooperative and guarded. Patient appears distractible and does not relate well to this interviewer. Language production is spontaneous. R/R/V are normal. Articulation is clear. Patient reports mood as okay with incongruent and expansive affect. Patients thought process is severely disorganized, nonsensical, nonlinear, illogical, with loose associations, tangential thought. Patient does not report suicidal/homicidal thoughts, ideas, or plans. Patient denies auditory, visual hallucinations. Patient reports delusions. Patient does not appear to be attending to internal stimuli. Patients attention and concentration are poor. Patient is oriented to person. Patients insight and judgement are poor. - Time Spent With Patient Time Spent With Patient: 15 minutes, met with patient individually. - Pending Discharge Pending Discharge Within 24 Hours: No Pending Discharge Within 48 Hours: No ICD10 Worksheet Patient Problems: Problems Problem Status Onset Psychosis Acute Schizophrenia Chronic
[2017-11-25] MEDS: RISPERIDONE 1 MG ODT TAB SL SCH (20:19)
[2017-11-26] MEDS: RISPERIDONE 1 MG ODT TAB SL SCH ×2 (08:08→19:37)
--- NOTE | 2017-11-26 14:12 | ASMTCMCOM ---
CM Note CM Note Notes: Pt. was laying in bed under the covers, when CC approached. Pt. reports feeling "alright". When asked if he slept well, pt stated "slept in that way". When asked if he is getting enough to eat, pt. stated "I have had enough of eat". When asked about medications, pt. stated "Yes, there is a medicine. I don't have an effect yet". When asked about going to groups, pt stated "Yes, I've been to one group. I don't like them". When asked where he wants to stay upon discharge, pt stated " Don't have that now". CC asked if pt. needed anything and pt. stated "I don't have an outlet". Pt. denied SI, HI, AVH and paranoia Pt. presents as alert, disorganized, guarded, vague, no eye contact and speaking oddly. Staff report pt. sleeping 15 hours and being medication compliant. Date Signed: 11/26/2017 02:11 PM Electronically Signed By:Sara Durán
--- NOTE | 2017-11-26 16:22 | SOAPPROG ---
SOAP Progress Note Assessment/Plan: Assessment: Per Jakob Mcintyre's note: Assessment: Schizophrenia, acute psychosis, disorganized, withdrawn. No change (see Subjective and Objective). Patient is not safe to discharge at this time as patient continues to exhibit signs of psychosis, and express psychosis symptoms. Patient requires continued inpatient care because of current acute psychosis, and requires inpatient level of care to stabilize in order to no longer be gravely disabled due to mental illness. Patient could benefit from continued inpatient hospitalization for crisis stabilization, safety, and medication evaluation. Plan: 11/26/17 16:18 1. Start cogentin for prevention of EPS d/t Risperdal. 2. Patient has been eating (100% of meals) and sleeping well (over 15 hrs yesterday). 3. STC Subjective: Patient sitting in chair staring out of window. He has minimal interaction with staff. When asked question, patient either stares blankly or repeats part of the question back. No stiffness, rigidity, shuffling or abnormal movements. Objective: Vital Signs Temp Pulse Resp BP Pulse Ox 36.4 C 62 14 103/57 L 94 11/26/17 06:00 11/26/17 06:00 11/26/17 06:00 11/26/17 06:00 11/26/17 06:00 MSE: Affect: Constricted Mood: No response TP: Thought blocking, disorganized TC: Does not voice any SI/HI Insight/Judgment: Impaired - Time Spent With Patient Time Spent With Patient: 15" - Pending Discharge Pending Discharge Within 24 Hours: No Pending Discharge Within 48 Hours: No ICD10 Worksheet Patient Problems: Problems Problem Status Onset Psychosis Acute Schizophrenia Chronic
[2017-11-26] MEDS: BENZTROPINE MESYLATE 1 MG TAB PO SCH (19:38)
[2017-11-27] MEDS: BENZTROPINE MESYLATE 1 MG TAB PO SCH ×2 (08:12→19:03)
[2017-11-27] MEDS: RISPERIDONE 1 MG ODT TAB SL SCH ×2 (08:12→19:03)
--- NOTE | 2017-11-27 14:55 | ASMTBHDC ---
Notes Note: Notes: CC met briefly with pt. Pt. stated he is not willing to sign up for Medicaid. Pt. stated at discharge he plans to move to [place] to a house he inherited from his grandmother. When asked how he will get there, pt stated "inherited will get me there". Pt. declined to share more. Pt. presents as alert, disheveled, passive, guarded, and with good eye contact. Staff report pt. sleeping 9.5 hours and being medication compliant. Pt. asked staff "not sure why I'm here". Pt. does not appear psychotic or responding to internal stimuli. Date Signed: 11/27/2017 02:54 PM Electronically Signed By:Sara Durán
--- NOTE | 2017-11-27 15:15 | SOAPPROG ---
SOAP Progress Note Assessment/Plan: Assessment: Per Jakob Mcintyre's note: Assessment: Schizophrenia, acute psychosis, disorganized, withdrawn. No change (see Subjective and Objective). Patient is not safe to discharge at this time as patient continues to exhibit signs of psychosis, and express psychosis symptoms. Patient requires continued inpatient care because of current acute psychosis, and requires inpatient level of care to stabilize in order to no longer be gravely disabled due to mental illness. Patient could benefit from continued inpatient hospitalization for crisis stabilization, safety, and medication evaluation. Plan: 11/26/17 16:18 1. Start cogentin for prevention of EPS d/t Risperdal. 2. Patient has been eating (100% of meals) and sleeping well (over 15 hrs yesterday). 3. STC PLAN: 11/27/17 15:13 1. Patient slept 9.5 hrs last night, but has stayed in bed in his room all day. 2. No change, CCM 3. STC Subjective: Patient stays in bed all day. He does not participate in groups or milieu activities. He says he feels, "OK," but wants to know "why I'm here?" Objective: Vital Signs Temp Pulse Resp BP Pulse Ox 36.6 C 58 L 14 99/57 L 96 11/27/17 06:00 11/27/17 06:00 11/27/17 06:00 11/27/17 06:00 11/27/17 06:00 MSE: Affect: Flat Mood: "OK" TP: Disorganized, illogical TC: Denies SI/HI, paranoid Perception: AH Insight/Judgment: Impaired - Time Spent With Patient Time Spent With Patient: 15" - Pending Discharge Pending Discharge Within 24 Hours: No Pending Discharge Within 48 Hours: No ICD10 Worksheet Patient Problems: Problems Problem Status Onset Psychosis Acute Schizophrenia Chronic
--- NOTE | 2017-11-28 07:28 | SOAPPROG ---
SOAP Progress Note Assessment/Plan: Assessment: Schizophrenia, acute psychosis, disorganized, withdrawn. No change (see Subjective and Objective). Patient is not safe to discharge at this time as patient continues to exhibit signs of psychosis, and express psychosis symptoms. Patient requires continued inpatient care because of current acute psychosis, and requires inpatient level of care to stabilize in order to no longer be gravely disabled due to mental illness. Patient could benefit from continued inpatient hospitalization for crisis stabilization, safety, and medication evaluation. Plan: (1) Psychotropic medications: After reviewing options, risks, and benefits patient agrees to trial of Risperdal M-tab 2 mg BID and Cogentin 1 mg BID. Plan is to continue to observe patient for response and side effects from medications, and ongoing monitoring and evaluation. Consider increasing Risperdal M-tab to 2 mg QD and 3 mg QHS. (2) Review with patient informed consent and recommendations for psychotropic medication treatment listed below (3) Labs: no additional labs at this time (4) Therapy: continue milieu and group therapy (5) Further investigation including gathering information from patients relatives and review of past case records to inform treatment plan. (6) Safety/Wellness plan and follow-up outpatient appointments to be established prior to discharge. Next steps are for patient to meet with home health care worker to plan a safe discharge plan and establish outpatient services for ongoing treatment. (7) Confer with inpatient treatment team regarding treatment plan. (8) Legal status: [facility] (9) Consider discharge next week if patient is in stable condition, safe, and has a safe discharge plan. PSYCHOTROPIC MEDICATION TREATMENT INFORMED CONSENT and RECOMMENDATIONS: Review nature of condition, diagnosis, and prognosis. Review nature and purpose of psychotropic medication treatment. Review type of psychotropic medications being ordered. Review risk and benefits of psychotropic medication treatment. Review probable length of time patient will need to take medications. Review risk and benefits of not undergoing psychotropic medication treatment. Review alternative treatments to psychotropic medications. Review psychotropic medications contraindications, drug-drug interactions, side effects, and importance of reporting any side effects to a psychiatric provider or nurse during inpatient hospitalization, and upon discharge to patients psychiatric outpatient provider, primary care provider, or other health customer care associate. Review importance of asking a nurse, psychiatric provider, or primary care provider any questions or problems concerning the psychotropic medications. Verify patient understands the information that has been provided, and understands, accepts, and agrees to psychotropic medications. Review patients safety plan and importance of patient to report to staff while hospitalized if patient is ever a danger to self/others, or unable to care for self, and upon discharge, the importance for patient to contact [facility] or [facility], or go to the nearest emergency room, if patient is ever a danger to self/others, or unable to care for self. Recommend that upon discharge patient establish medication management treatment with a psychiatric provider, establishes routine therapy appointments, and follow-up with primary care provider. Verify patient understands and agrees to these recommendations. 11/28/17 07:26 Subjective: Following up with patient for evaluation of psychosis and safety. When this BOILER PLANT OPERATOR asks patient if he is better able to organize his thoughts patient states, "I do not have that, I have your question." When this BOILER PLANT OPERATOR asks patient where he plans to go after discharging from hospital patient reports, "I have an inherited house in [place], [address] [place] [address], and that's where I will go." Patient does not report undesirable side effects from the medications, and agrees to continue current medications. Patient reports appetite as good, and reports eating all meals. Patient describes getting 8 hours of sleep last night. Patient agrees to continue trial of Risperdal M-tab 2 mg SL BID and Cogentin 1 mg BID. Objective: Vital Signs Temp Pulse Resp BP Pulse Ox 36.5 C 94 15 123/71 H 97 11/28/17 06:00 11/28/17 06:00 11/28/17 06:00 11/28/17 06:00 11/28/17 06:00 NURSING REPORT: Consulted with nursing for update on patients progress in treatment. Nurses report patient is not engaged in treatment, is not attending groups, slept 12.5 hours, is withdrawn to his room, in bed majority of the day, comes out for meals, expresses the following psychiatric symptoms: anxiety; exhibits the following psychiatric symptoms: disorganized, paranoid, illogical, non-linear; is eating all meals, is agreeable to medications and taking as prescribed with no report of side effects, with no s/s of EPS/akathisia, and denies SI/HI, denies A/V hallucinations, and denies delusions. DESIGN ENG UPDATE: establishing discharge plan with [facility] for follow-up after discharge. MSE: The patient is a well-nourished male looking stated chronological age. Attire is inappropriate and dress is casual and hospital garb combination. Grooming status is inappropriate and disheveled. Ambulation is independent. Gait is normal and coordinated. Posture is normal and relaxed. Eye contact is inappropriate, and avoided. Motor activity is appropriate with purposeful, organized, coordinated movements; with no involuntary movements. Attitude is uncooperative and guarded. Patient appears distractible and does not relate well to this interviewer. Language production is spontaneous. R/R/V are normal. Articulation is clear. Patient reports mood as okay with incongruent and expansive affect. Patients thought process is severely disorganized, non- linear, illogical, with loose associations, tangential thought. Patient does not report suicidal/homicidal thoughts, ideas, or plans. Patient denies auditory, visual hallucinations. Patient reports delusions. Patient does not appear to be attending to internal stimuli. Patients attention and concentration are poor. Patient is oriented to person. Patients insight and judgement are poor. - Time Spent With Patient Time Spent With Patient: 15 minutes, met with patient individually. - Pending Discharge Pending Discharge Within 24 Hours: No Pending Discharge Within 48 Hours: No ICD10 Worksheet Patient Problems: Problems Problem Status Onset Psychosis Acute Schizophrenia Chronic
[2017-11-28] MEDS ORDERED: RISPERIDONE 2 MG ODT TAB SL SCH (09:00)
[2017-11-28] MEDS ORDERED: RISPERIDONE ODT 0.5 MG TAB SL SCH (09:00)
[2017-11-28] MEDS: BENZTROPINE MESYLATE 1 MG TAB PO SCH ×2 (09:05→20:23)
--- NOTE | 2017-11-28 12:30 | ASMTCMCOM ---
CM Note CM Note Notes: Client agreed to sign REGGIE for [facility]; CC sent over referral requesting for an intake date, time and location for client. Client is doing better (slightly) than previous days. Client remains highly disorganized and isolative. Client's affect is restriced, primial and mostly flat. CC will follow up with [facility] later in the week.* Date Signed: 11/28/2017 12:29 PM Electronically Signed By:Akbar Izquierdo
[2017-11-28] MEDS ORDERED: RISPERIDONE 1 MG ODT TAB SL SCH (21:00)
[2017-11-29] MEDS ORDERED: LORazepam 1 MG TAB PO ONE ×2 (07:49→12:52)
--- NOTE | 2017-11-29 07:59 | SOAPPROG ---
SOAP Progress Note Assessment/Plan: Assessment: Schizophrenia, acute psychosis, disorganized, withdrawn. No change, patient has shown little to no improvement since admission (see Subjective and Objective ). Patient is not safe to discharge at this time as patient continues to exhibit signs of psychosis, and express psychosis symptoms. Patient requires continued inpatient care because of current acute psychosis, and requires inpatient level of care to stabilize in order to no longer be gravely disabled due to mental illness. Patient could benefit from continued inpatient hospitalization for crisis stabilization, safety, and medication evaluation. Plan: (1) Psychotropic medications: After reviewing options, risks, and benefits patient agrees to trial of Risperdal M-tab 2.5 mg BID and Cogentin 1 mg BID; patient agrees to trial of Ativan 1 mg po once one. Patient is showing little to no improvement at current dose of Risperdal and could benefit from trial of dose increase; patient is currently tolerating titration with no s/s of side effects; no EPS. Plan is to continue to observe patient for response and side effects from medications, and ongoing monitoring and evaluation. Consider increasing Risperdal M-tab to 3 mg BID on Tuesday of this week if no improvement noted. Continue at 3 mg po BID over weekend, and if no improvement by beginning of next week, consider augmentation or switch to another antipsychotic medication. Ativan trial of catatonic-like state, little to no movement during the day, in bed, only up for meals when prompted by staff. (2) Review with patient informed consent and recommendations for psychotropic medication treatment listed below (3) Labs: no additional labs at this time (4) Therapy: continue milieu and group therapy (5) Further investigation including gathering information from patients relatives and review of past case records to inform treatment plan. (6) Safety/Wellness plan and follow-up outpatient appointments to be established prior to discharge. Next steps are for patient to meet with after school caregiver to plan a safe discharge plan and establish outpatient services for ongoing treatment. (7) Confer with inpatient treatment team regarding treatment plan. (8) Legal status: [facility] (9) Consider discharge next week if patient is in stable condition, safe, and has a safe discharge plan. PSYCHOTROPIC MEDICATION TREATMENT INFORMED CONSENT and RECOMMENDATIONS: Review nature of condition, diagnosis, and prognosis. Review nature and purpose of psychotropic medication treatment. Review type of psychotropic medications being ordered. Review risk and benefits of psychotropic medication treatment. Review probable length of time patient will need to take medications. Review risk and benefits of not undergoing psychotropic medication treatment. Review alternative treatments to psychotropic medications. Review psychotropic medications contraindications, drug-drug interactions, side effects, and importance of reporting any side effects to a psychiatric provider or nurse during inpatient hospitalization, and upon discharge to patients psychiatric outpatient provider, primary care provider, or other health nurse healthcare manager. Review importance of asking a nurse, psychiatric provider, or primary care provider any questions or problems concerning the psychotropic medications. Verify patient understands the information that has been provided, and understands, accepts, and agrees to psychotropic medications. Review patients safety plan and importance of patient to report to staff while hospitalized if patient is ever a danger to self/others, or unable to care for self, and upon discharge, the importance for patient to contact [facility] or [facility], or go to the nearest emergency room, if patient is ever a danger to self/others, or unable to care for self. Recommend that upon discharge patient establish medication management treatment with a psychiatric provider, establishes routine therapy appointments, and follow-up with primary care provider. Verify patient understands and agrees to these recommendations. 11/29/17 08:01 Subjective: Following up with patient for evaluation of psychosis and safety. Patient states, "Do you know about the boiling of crabs and lobsters? Why do we do this ? You could be the surgeon general psychiatrist from [place] that puts an end to this atrocity. Do you know we have had two presidents that have lied about their names? This is the hypocrisy of the oath that I do not have. Do you have this? The order of the righteous that is to be determined." Patient does not report undesirable side effects from the medications, and agrees to continue current medications. Patient reports appetite as good, and reports eating all meals. Patient describes getting 8 hours of sleep last night. Patient agrees to continue Risperdal M-tab and increase to 2.5 mg SL BID, trial Ativan 1 mg po once one, and Cogentin 1 mg BID. Patient states no improvement in organizing this thoughts, and reports he feels more comfortable staying in his room. Patient states he is in bed most of the day because "I did not get much sleep prior to coming here, this I indeed need, oh yes, that in which I need to sleep in my room." Objective: Vital Signs Temp Pulse Resp BP Pulse Ox 36.8 C 74 14 116/64 94 11/29/17 06:00 11/29/17 06:00 11/29/17 06:00 11/29/17 06:00 11/29/17 06:00 NURSING REPORT: Consulted with nursing for update on patients progress in treatment. Nurses report patient is not engaged in treatment, is not attending groups, slept 10 hours, is withdrawn to his room, in bed majority of the day supine with blankets covering his head, comes out for meals, expresses the following psychiatric symptoms: anxiety; exhibits the following psychiatric symptoms: severely disorganized, paranoid, illogical, non-linear; is eating all meals, is agreeable to medications and taking as prescribed with no report of side effects, with no s/s of EPS/akathisia, and denies SI/HI, denies A/V hallucinations, and denies delusions. BOX TOE CEMENTER UPDATE: establishing discharge plan with [facility] for follow-up after discharge. MSE: The patient is a well-nourished male looking stated chronological age. Attire is inappropriate and dress is casual and hospital garb combination. Grooming status is inappropriate and disheveled. Ambulation is independent. Gait is normal and coordinated. Posture is normal and relaxed. Eye contact is inappropriate, and avoided. Motor activity is appropriate with purposeful, organized, coordinated movements; with no involuntary movements. Attitude is uncooperative and guarded. Patient appears distractible and does not relate well to this interviewer. Language production is spontaneous. R/R/V are normal. Articulation is clear. Patient reports mood as okay with incongruent and expansive affect. Patients thought process is severely disorganized, non- linear, illogical, with loose associations, tangential thought. Patient does not report suicidal/homicidal thoughts, ideas, or plans. Patient denies auditory, visual hallucinations. Patient reports delusions. Patient does not appear to be attending to internal stimuli. Patients attention and concentration are poor. Patient is oriented to person. Patients insight and judgement are poor. - Time Spent With Patient Time Spent With Patient: 15 minutes, met with patient individually. - Pending Discharge Pending Discharge Within 24 Hours: No Pending Discharge Within 48 Hours: No ICD10 Worksheet Patient Problems: Problems Problem Status Onset Psychosis Acute Schizophrenia Chronic
[2017-11-29] MEDS: BENZTROPINE MESYLATE 1 MG TAB PO SCH ×2 (08:15→21:18)
[2017-11-29] MEDS ORDERED: RISPERIDONE ODT 0.5 MG TAB SL SCH (09:00)
[2017-11-29] MEDS: LORazepam 0.5 MG TAB PO PRN (12:44)
[2017-11-29] MEDS ORDERED: LORazepam 0.5 MG TAB PO PRN (12:50)
[2017-11-29] MEDS ORDERED: RISPERIDONE 1 MG ODT TAB SL PRN (14:27)
[2017-11-29] MEDS: RISPERIDONE 2 MG ODT TAB PO SCH (21:18)
[2017-11-29] MEDS: LORazepam 1 MG TAB PO SCH ×2 (21:18→21:50)
[2017-11-29] MEDS: RISPERIDONE ODT 0.5 MG TAB PO SCH (21:18)
--- NOTE | 2017-11-30 07:55 | SOAPPROG ---
SOAP Progress Note Assessment/Plan: Assessment: Schizophrenia, acute psychosis, disorganized, withdrawn. No change, patient has shown little to no improvement since admission; increased agitation yesterday; aggressive hitting himself in face with closed fist during lunch ( see Subjective and Objective). Patient is not safe to discharge at this time as patient continues to exhibit signs of psychosis, and express psychosis symptoms. Patient requires continued inpatient care because of current acute psychosis, and requires inpatient level of care to stabilize in order to no longer be gravely disabled due to mental illness. Patient could benefit from continued inpatient hospitalization for crisis stabilization, safety, and medication evaluation. Plan: (1) Psychotropic medications: After reviewing options, risks, and benefits patient agrees to continue Risperdal M-tab 2.5 mg BID, Ativan 1 mg po TID, and Cogentin 1 mg BID. Patient is showing little to no improvement at current dose of Risperdal and could benefit from trial of dose increase; patient is currently tolerating titration with no s/s of side effects; no EPS. Plan is to continue to observe patient for response and side effects from medications, and ongoing monitoring and evaluation. Consider increasing Risperdal M-tab to 3 mg BID on Tuesday of this week if no improvement noted. Continue at 3 mg po BID over weekend, and if no improvement by beginning of next week, consider augmentation or switch to another antipsychotic medication. Ativan trial for catatonic-like state patient did show improvement yesterday, out of room more, and will continue today scheduled Ativan 1 mg po TID. (2) Review with patient informed consent and recommendations for psychotropic medication treatment listed below (3) Labs: no additional labs at this time (4) Therapy: continue milieu and group therapy (5) Further investigation including gathering information from patients relatives and review of past case records to inform treatment plan. (6) Safety/Wellness plan and follow-up outpatient appointments to be established prior to discharge. Next steps are for patient to meet with nurse healthcare manager to plan a safe discharge plan and establish outpatient services for ongoing treatment. (7) Confer with inpatient treatment team regarding treatment plan. (8) Legal status: [facility] (9) Consider discharge next week if patient is in stable condition, safe, and has a safe discharge plan. PSYCHOTROPIC MEDICATION TREATMENT INFORMED CONSENT and RECOMMENDATIONS: Review nature of condition, diagnosis, and prognosis. Review nature and purpose of psychotropic medication treatment. Review type of psychotropic medications being ordered. Review risk and benefits of psychotropic medication treatment. Review probable length of time patient will need to take medications. Review risk and benefits of not undergoing psychotropic medication treatment. Review alternative treatments to psychotropic medications. Review psychotropic medications contraindications, drug-drug interactions, side effects, and importance of reporting any side effects to a psychiatric provider or nurse during inpatient hospitalization, and upon discharge to patients psychiatric outpatient provider, primary care provider, or other health career advisor. Review importance of asking a nurse, psychiatric provider, or primary care provider any questions or problems concerning the psychotropic medications. Verify patient understands the information that has been provided, and understands, accepts, and agrees to psychotropic medications. Review patients safety plan and importance of patient to report to staff while hospitalized if patient is ever a danger to self/others, or unable to care for self, and upon discharge, the importance for patient to contact [facility] or [facility], or go to the nearest emergency room, if patient is ever a danger to self/others, or unable to care for self. Recommend that upon discharge patient establish medication management treatment with a psychiatric provider, establishes routine therapy appointments, and follow-up with primary care provider. Verify patient understands and agrees to these recommendations. 11/30/17 07:57 Subjective: Following up with patient for evaluation of psychosis and safety. Patient states, "Lobsters, you and all your people are guilty of boiling lobsters. This needs to stop, as this is the awareness of the 3rd level. We aware that you are not." Patient does not report undesirable side effects from the medications, and agrees to continue current medications. Patient reports appetite as good, and reports eating all meals. Patient describes getting 8 hours of sleep last night. Patient agrees to continue Risperdal M-tab 2.5 mg SL BID, Ativan 1 mg TID, and Cogentin 1 mg BID. Objective: Vital Signs Temp Pulse Resp BP Pulse Ox 36.3 C 60 14 92/55 L 95 11/30/17 06:00 11/30/17 06:00 11/30/17 06:00 11/30/17 06:00 11/30/17 06:00 NURSING REPORT: Consulted with nursing for update on patients progress in treatment. Nurses report patient is not engaged in treatment, is not attending groups, slept 10 hours, is withdrawn to his room, in bed majority of the day; patient did spend more time in the milieu yesterday after receiving Ativan 1 mg po AM; patient become agitated during lunch, yelling and punching himself in the face with closed fist; patient required two doses of Ativan 1 mg and was redirectable to his room; patient continues to come out for meals, expresses the following psychiatric symptoms: anxiety; exhibits the following psychiatric symptoms: severely disorganized, paranoid, illogical, non-linear; is eating all meals, is agreeable to medications and taking as prescribed with no report of side effects, with no s/s of EPS/akathisia, and denies SI/HI, denies A/V hallucinations, and denies delusions. PRINTED CIRCUIT BOARDS PINNER UPDATE: establishing discharge plan with [facility] for follow-up after discharge. MSE: The patient is a well-nourished male looking stated chronological age. Attire is inappropriate and dress is casual and hospital garb combination. Grooming status is inappropriate and disheveled. Ambulation is independent. Gait is normal and coordinated. Posture is normal and relaxed. Eye contact is inappropriate, and avoided. Motor activity is appropriate with purposeful, organized, coordinated movements; with no involuntary movements. Attitude is uncooperative and guarded. Patient appears distractible and does not relate well to this interviewer. Language production is spontaneous. R/R/V are normal. Articulation is clear. Patient reports mood as okay with incongruent and expansive affect. Patients thought process is severely disorganized, non- linear, illogical, with loose associations, tangential thought. Patient does not report suicidal/homicidal thoughts, ideas, or plans. Patient denies auditory, visual hallucinations. Patient reports delusions. Patient does not appear to be attending to internal stimuli. Patients attention and concentration are poor. Patient is oriented to person. Patients insight and judgement are poor. - Time Spent With Patient Time Spent With Patient: 15 minutes, met with patient individually. - Pending Discharge Pending Discharge Within 24 Hours: No Pending Discharge Within 48 Hours: No ICD10 Worksheet Patient Problems: Problems Problem Status Onset Psychosis Acute Schizophrenia Chronic
[2017-11-30] MEDS: RISPERIDONE 2 MG ODT TAB PO SCH ×2 (08:41→20:45)
[2017-11-30] MEDS: LORazepam 1 MG TAB PO SCH ×3 (08:41→20:45)
[2017-11-30] MEDS: BENZTROPINE MESYLATE 1 MG TAB PO SCH ×2 (08:41→20:45)
[2017-11-30] MEDS: RISPERIDONE ODT 0.5 MG TAB PO SCH ×2 (08:42→20:45)
--- NOTE | 2017-11-30 13:21 | ASMTBHDC ---
Notes Note: Notes: CC was able to confirm a tentative appts. Follow up with: [facility] [address] [place] [address] [address] [facility], [facility] Intake Appt: TuesdayDecember 12 (12/12/17) at 8:30am, with Shadia Cho check in on the second floor. Additional Information: [facility] [address] [place] [id number] Date Signed: 11/30/2017 01:21 PM Electronically Signed By:Akbar Izquierdo
--- NOTE | 2017-12-01 07:29 | SOAPPROG ---
SOAP Progress Note Assessment/Plan: Assessment: Schizophrenia, acute psychosis, disorganized, withdrawn. No change, patient has shown little to no improvement since admission (see Subjective and Objective ). Patient is not safe to discharge at this time as patient continues to exhibit signs of psychosis, and express psychosis symptoms. Patient requires continued inpatient care because of current acute psychosis, and requires inpatient level of care to stabilize in order to no longer be gravely disabled due to mental illness. Patient could benefit from continued inpatient hospitalization for crisis stabilization, safety, and medication evaluation. Plan: (1) Psychotropic medications: After reviewing options, risks, and benefits patient agrees to increase Risperdal M-tab to 3 mg BID, and agrees to continue Ativan 1 mg po TID, and Cogentin 1 mg BID. Patient is showing little to no improvement at current dose of Risperdal and could benefit from trial of dose increase; patient is currently tolerating titration with no s/s of side effects ; no EPS. Plan is to continue to observe patient for response and side effects from medications, and ongoing monitoring and evaluation. Continue at Risperdal M-tab 3 mg po BID through weekend, and if no improvement by beginning of next week, consider increasing to 3.5 mg po BID. Ativan trial for catatonic-like state patient did show improvement Tuesday, out of room more, and will continue scheduled Ativan 1 mg po TID. (2) Review with patient informed consent and recommendations for psychotropic medication treatment listed below (3) Labs: no additional labs at this time (4) Therapy: continue milieu and group therapy (5) Further investigation including gathering information from patients relatives and review of past case records to inform treatment plan. (6) Safety/Wellness plan and follow-up outpatient appointments to be established prior to discharge. Next steps are for patient to meet with resident care aide to plan a safe discharge plan and establish outpatient services for ongoing treatment. (7) Confer with inpatient treatment team regarding treatment plan. (8) Legal status: [facility] (9) Consider discharge next week if patient is in stable condition, safe, and has a safe discharge plan. PSYCHOTROPIC MEDICATION TREATMENT INFORMED CONSENT and RECOMMENDATIONS: Review nature of condition, diagnosis, and prognosis. Review nature and purpose of psychotropic medication treatment. Review type of psychotropic medications being ordered. Review risk and benefits of psychotropic medication treatment. Review probable length of time patient will need to take medications. Review risk and benefits of not undergoing psychotropic medication treatment. Review alternative treatments to psychotropic medications. Review psychotropic medications contraindications, drug-drug interactions, side effects, and importance of reporting any side effects to a psychiatric provider or nurse during inpatient hospitalization, and upon discharge to patients psychiatric outpatient provider, primary care provider, or other health care associate. Review importance of asking a nurse, psychiatric provider, or primary care provider any questions or problems concerning the psychotropic medications. Verify patient understands the information that has been provided, and understands, accepts, and agrees to psychotropic medications. Review patients safety plan and importance of patient to report to staff while hospitalized if patient is ever a danger to self/others, or unable to care for self, and upon discharge, the importance for patient to contact [facility] or [facility], or go to the nearest emergency room, if patient is ever a danger to self/others, or unable to care for self. Recommend that upon discharge patient establish medication management treatment with a psychiatric provider, establishes routine therapy appointments, and follow-up with primary care provider. Verify patient understands and agrees to these recommendations. 12/01/17 07:30 Subjective: Following up with patient for evaluation of psychosis and safety. Patient states, "Find the truth of past containment that was." When this UNEMPLOYMENT EXAMINER asks the patient why he is hospitalized patient states, "The lobster pot is this, the one that is, is not this." When this UNEMPLOYMENT EXAMINER asks patient if he has relatives we can speak to that know him patient states, "That's a one that is. 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 Patient reports appetite as good, and reports eating all meals. Patient describes getting 8 hours of sleep last night. Patient agrees to increase Risperdal M-tab to 3 mg SL BID, and agrees to continue Ativan 1 mg TID, and Cogentin 1 mg BID. Objective: Vital Signs Temp Pulse Resp BP Pulse Ox 36.3 C 60 16 87/55 L 97 12/01/17 06:00 12/01/17 06:00 12/01/17 06:00 12/01/17 06:00 12/01/17 06:00 NURSING REPORT: Consulted with nursing for update on patients progress in treatment. Nurses report patient is not engaged in treatment, is not attending groups, slept 10 hours; expresses the following psychiatric symptoms: anxiety; exhibits the following psychiatric symptoms: severely disorganized, paranoid, illogical, non-linear, agitated and irritable; is eating all meals, is agreeable to medications and taking as prescribed with no report of side effects , with no s/s of EPS/akathisia, and denies SI/HI, denies A/V hallucinations, and denies delusions. BINDER STRIPPER HAND UPDATE: establishing discharge plan with [facility] for follow-up after discharge. MSE: The patient is a well-nourished male looking stated chronological age. Attire is inappropriate and dress is casual and hospital garb combination. Grooming status is inappropriate and disheveled. Ambulation is independent. Gait is normal and coordinated. Posture is normal and relaxed. Eye contact is inappropriate, and avoided. Motor activity is appropriate with purposeful, organized, coordinated movements; with no involuntary movements. Attitude is uncooperative and guarded. Patient appears distractible and does not relate well to this interviewer. Language production is spontaneous. R/R/V are normal. Articulation is clear. Patient reports mood as okay with incongruent and expansive affect. Patients thought process is severely disorganized, non- linear, illogical, with loose associations, tangential thought. Patient does not report suicidal/homicidal thoughts, ideas, or plans. Patient denies auditory, visual hallucinations. Patient reports delusions. Patient does not appear to be attending to internal stimuli. Patients attention and concentration are poor. Patient is oriented to person. Patients insight and judgement are poor. - Time Spent With Patient Time Spent With Patient: 15 minutes, met with patient individually. - Pending Discharge Pending Discharge Within 24 Hours: No Pending Discharge Within 48 Hours: No ICD10 Worksheet Patient Problems: Problems Problem Status Onset Psychosis Acute Schizophrenia Chronic
[2017-12-01] MEDS: BENZTROPINE MESYLATE 1 MG TAB PO SCH ×2 (08:53→20:18)
[2017-12-01] MEDS: RISPERIDONE 2 MG ODT TAB PO SCH ×2 (08:53→20:18)
[2017-12-01] MEDS: LORazepam 1 MG TAB PO SCH ×2 (08:53→20:18)
--- NOTE | 2017-12-02 08:19 | SOAPPROG ---
SOAP Progress Note Assessment/Plan: Assessment: Schizophrenia, acute psychosis, disorganized, withdrawn. No change, patient has shown little to no improvement since admission (see Subjective and Objective ). Patient is not safe to discharge at this time as patient continues to exhibit signs of psychosis, and express psychosis symptoms. Patient requires continued inpatient care because of current acute psychosis, and requires inpatient level of care to stabilize in order to no longer be gravely disabled due to mental illness. Patient could benefit from continued inpatient hospitalization for crisis stabilization, safety, and medication evaluation. Plan: (1) Psychotropic medications: After reviewing options, risks, and benefits patient agrees to continue Risperdal M-tab to 3 mg BID, and agrees to continue Ativan 1 mg po BID, and Cogentin 1 mg BID. Patient is currently tolerating Risperdal titration with no s/s of side effects; no s/s EPS. Plan is to continue to observe patient for response and side effects from medications, and ongoing monitoring and evaluation. Continue at Risperdal M-tab 3 mg po BID through weekend, and if no improvement by beginning of next week, consider increasing to 3.5 mg po BID. Ativan trial for catatonic-like state patient did show improvement Tuesday, out of room more, and will continue today scheduled Ativan 1 mg po BID; continue Cogentin 1 mg BID EPS prevention. (2) Review with patient informed consent and recommendations for psychotropic medication treatment listed below (3) Labs: no additional labs at this time (4) Therapy: continue milieu and group therapy (5) Further investigation including gathering information from patients relatives and review of past case records to inform treatment plan. (6) Safety/Wellness plan and follow-up outpatient appointments to be established prior to discharge. Next steps are for patient to meet with health care administrator to plan a safe discharge plan and establish outpatient services for ongoing treatment. (7) Confer with inpatient treatment team regarding treatment plan. (8) Legal status: [facility] (9) Consider discharge next week if patient is in stable condition, safe, and has a safe discharge plan. PSYCHOTROPIC MEDICATION TREATMENT INFORMED CONSENT and RECOMMENDATIONS: Review nature of condition, diagnosis, and prognosis. Review nature and purpose of psychotropic medication treatment. Review type of psychotropic medications being ordered. Review risk and benefits of psychotropic medication treatment. Review probable length of time patient will need to take medications. Review risk and benefits of not undergoing psychotropic medication treatment. Review alternative treatments to psychotropic medications. Review psychotropic medications contraindications, drug-drug interactions, side effects, and importance of reporting any side effects to a psychiatric provider or nurse during inpatient hospitalization, and upon discharge to patients psychiatric outpatient provider, primary care provider, or other health manager long term care. Review importance of asking a nurse, psychiatric provider, or primary care provider any questions or problems concerning the psychotropic medications. Verify patient understands the information that has been provided, and understands, accepts, and agrees to psychotropic medications. Review patients safety plan and importance of patient to report to staff while hospitalized if patient is ever a danger to self/others, or unable to care for self, and upon discharge, the importance for patient to contact [facility] or [facility], or go to the nearest emergency room, if patient is ever a danger to self/others, or unable to care for self. Recommend that upon discharge patient establish medication management treatment with a psychiatric provider, establishes routine therapy appointments, and follow-up with primary care provider. Verify patient understands and agrees to these recommendations. 12/02/17 08:21 Subjective: Following up with patient for evaluation of psychosis and safety. Patient states, "Doing okay." When this SUPERVISOR VENDOR QUALITY asks patient why he is hospitalized patient reports, "This is just another example of the prosecution I receive when reporting the boiling of lobsters and crabs. The police take me to the hospital." When this SUPERVISOR VENDOR QUALITY asks patient where he is going to go when he discharges patient states, "To the home I inherited in [place]." When this SUPERVISOR VENDOR QUALITY asks patient who lives there now patient states, "My grandmother." When this SUPERVISOR VENDOR QUALITY asks patient if we can speak to his grandmother patient states, "She does not do that well." Patient reports no other family support that he is in contact with and provides no further information regarding why he is hospitalized or his plans for discharge. Patient does not report undesirable side effects from the medications, and agrees to continue current medications. Patient reports appetite as good, and reports eating all meals. Patient describes getting 8 hours of sleep last night. Patient agrees to continue Risperdal M-tab 3 mg SL BID, and agrees to continue Ativan 1 mg TID, and Cogentin 1 mg BID. Patient reports no side effects, no reports of EPS symptoms. Objective: Vital Signs Temp Pulse Resp BP Pulse Ox 37 C 70 16 100/64 93 12/02/17 06:00 12/02/17 06:00 12/02/17 06:00 12/02/17 06:00 12/02/17 06:00 NURSING REPORT: Consulted with nursing for update on patients progress in treatment. Nurses report patient is not engaged in treatment, is not attending groups, slept 10 hours; expresses the following psychiatric symptoms: anxiety; exhibits the following psychiatric symptoms: severely disorganized, paranoid, illogical, non-linear; is eating all meals, is agreeable to medications and taking as prescribed with no report of side effects, with no s/s of EPS/ akathisia, and denies SI/HI, denies A/V hallucinations, and denies delusions. INCIDENT MANAGER UPDATE: establishing discharge plan with [facility] for follow-up after discharge. MSE: The patient is a well-nourished male looking stated chronological age. Attire is inappropriate and dress is casual and hospital garb combination. Grooming status is inappropriate and disheveled. Ambulation is independent. Gait is normal and coordinated. Posture is normal and relaxed. Eye contact is inappropriate, and avoided. Motor activity is appropriate with purposeful, organized, coordinated movements; with no involuntary movements. Attitude is uncooperative and guarded. Patient appears distractible and does not relate well to this interviewer. Language production is spontaneous. R/R/V are normal. Articulation is clear. Patient reports mood as okay with incongruent and expansive affect. Patients thought process is severely disorganized, non- linear, illogical, with loose associations, tangential thought. Patient does not report suicidal/homicidal thoughts, ideas, or plans. Patient denies auditory, visual hallucinations. Patient reports delusions. Patient does not appear to be attending to internal stimuli. Patients attention and concentration are poor. Patient is oriented to person. Patients insight and judgement are poor. - Time Spent With Patient Time Spent With Patient: 15 minutes, met with patient individually. - Pending Discharge Pending Discharge Within 24 Hours: No Pending Discharge Within 48 Hours: No ICD10 Worksheet Patient Problems: Problems Problem Status Onset Psychosis Acute Schizophrenia Chronic
[2017-12-02] MEDS: BENZTROPINE MESYLATE 1 MG TAB PO SCH ×2 (08:37→20:40)
[2017-12-02] MEDS: RISPERIDONE 2 MG ODT TAB PO SCH ×2 (08:38→20:40)
[2017-12-02] MEDS: LORazepam 1 MG TAB PO SCH ×2 (08:38→20:41)
[2017-12-03] MEDS: RISPERIDONE 2 MG ODT TAB PO SCH ×2 (08:31→21:04)
[2017-12-03] MEDS: LORazepam 1 MG TAB PO SCH ×2 (08:31→21:04)
[2017-12-03] MEDS: BENZTROPINE MESYLATE 1 MG TAB PO SCH ×2 (08:31→21:04)
--- NOTE | 2017-12-03 17:33 | SOAPPROG ---
SOAP Progress Note Assessment/Plan: Assessment: Per Jakob Mcintyre's note: Schizophrenia, acute psychosis, disorganized, withdrawn. No change, patient has shown little to no improvement since admission (see Subjective and Objective ). Patient is not safe to discharge at this time as patient continues to exhibit signs of psychosis, and express psychosis symptoms. Patient requires continued inpatient care because of current acute psychosis, and requires inpatient level of care to stabilize in order to no longer be gravely disabled due to mental illness. Patient could benefit from continued inpatient hospitalization for crisis stabilization, safety, and medication evaluation. Plan: (1) Psychotropic medications: After reviewing options, risks, and benefits patient agrees to continue Risperdal M-tab to 3 mg BID, and agrees to continue Ativan 1 mg po BID, and Cogentin 1 mg BID. Patient is currently tolerating Risperdal titration with no s/s of side effects; no s/s EPS. Plan is to continue to observe patient for response and side effects from medications, and ongoing monitoring and evaluation. Continue at Risperdal M-tab 3 mg po BID through weekend, and if no improvement by beginning of next week, consider increasing to 3.5 mg po BID. Ativan trial for catatonic-like state patient did show improvement Tuesday, out of room more, and will continue today scheduled Ativan 1 mg po BID; continue Cogentin 1 mg BID EPS prevention. 3. [facility] PLAN: 12/03/17 17:30 1. Patient presents the same today. Selectively mute, limited response to questions. Will only shake head. 2. No stiffness, rigidity, shuffling or abnormal movements observed. 3. Compliant with meds. 4. CCM Subjective: Patient out of room briefly, sitting in rocking chair staring straight ahead. MD attempts to engage patient, but he doesn't move head or make eye contact. He doesn't respond to most questions and only shakes his head. RN stated he did say a few words to her. When asked if he sleeps in his bed all day, he responded , "I just lay here." Objective: Vital Signs Temp Pulse Resp BP Pulse Ox 37 C 70 16 100/64 93 12/02/17 06:00 12/02/17 06:00 12/02/17 06:00 12/02/17 06:00 12/02/17 06:00 MSE: Affect: Blunted Mood: No response TP: Paucity of speech, mutism TC: Impoverishment Insight/Judgment: Impaired - Time Spent With Patient Time Spent With Patient: 15" - Pending Discharge Pending Discharge Within 24 Hours: No Pending Discharge Within 48 Hours: No ICD10 Worksheet Patient Problems: Problems Problem Status Onset Psychosis Acute Schizophrenia Chronic
[2017-12-04] MEDS: RISPERIDONE 2 MG ODT TAB PO SCH ×2 (08:38→20:46)
[2017-12-04] MEDS: LORazepam 1 MG TAB PO SCH ×2 (08:38→20:48)
[2017-12-04] MEDS: BENZTROPINE MESYLATE 1 MG TAB PO SCH ×2 (08:40→20:45)
--- NOTE | 2017-12-04 14:20 | ASMTBHDC ---
Notes Note: Notes: Pt. was laying in bed when CC approached. Pt. reports feeling "okay". Pt. stated he slept "better than average". Pt. reports no issues with his current medications. CC asked pt what he has been doing in his room, pt stated "sleeping". Pt. stated he still plans to fly to [facility] to live in a house he inherited. Pt. stated he does not have any providers i the [facility]. Pt. stated he took a bus from [place] to [place] "more than a year ago". Pt. stated he wants to stay in the hospital until 12/17 or 12/18, adding he plans to sleep while in the hospital. CC asked why pt is so tired, pt stated "was being myself". Pt. denied SI, HI, AVH and paranoia. Pt. presents as alert, passive, possibly thought blocking, evasive, with poor eye contact, and unkempt. Staff report pt. [id number] hours, being medication compliant and only coming out of his room for meals. Date Signed: 12/04/2017 02:19 PM Electronically Signed By:Sara Durán
--- NOTE | 2017-12-04 17:01 | SOAPPROG ---
SOAP Progress Note Assessment/Plan: Assessment: Per Jakob Mcintyre's note: Schizophrenia, acute psychosis, disorganized, withdrawn. No change, patient has shown little to no improvement since admission (see Subjective and Objective ). Patient is not safe to discharge at this time as patient continues to exhibit signs of psychosis, and express psychosis symptoms. Patient requires continued inpatient care because of current acute psychosis, and requires inpatient level of care to stabilize in order to no longer be gravely disabled due to mental illness. Patient could benefit from continued inpatient hospitalization for crisis stabilization, safety, and medication evaluation. Plan: (1) Psychotropic medications: After reviewing options, risks, and benefits patient agrees to continue Risperdal M-tab to 3 mg BID, and agrees to continue Ativan 1 mg po BID, and Cogentin 1 mg BID. Patient is currently tolerating Risperdal titration with no s/s of side effects; no s/s EPS. Plan is to continue to observe patient for response and side effects from medications, and ongoing monitoring and evaluation. Continue at Risperdal M-tab 3 mg po BID through weekend, and if no improvement by beginning of next week, consider increasing to 3.5 mg po BID. Ativan trial for catatonic-like state patient did show improvement Tuesday, out of room more, and will continue today scheduled Ativan 1 mg po BID; continue Cogentin 1 mg BID EPS prevention. 3. [facility] PLAN: 12/03/17 17:30 1. Patient presents the same today. Selectively mute, limited response to questions. Will only shake head. 2. No stiffness, rigidity, shuffling or abnormal movements observed. 3. Compliant with meds. 4. [facility] PLAN: 12/04/17 16:57 1. Patient still delusional (thinks he inherited home in [place], which assumes is not true). 2. Compliant w/ meds. No evidence of EPS or TD. 3. Very little information about this patient's med/psych hx or social hx. He told CC today that he's from [place] and "took bus" to [place] a year ago. If possible, it would be beneficial to have med records from past. 4. CC reports intake appt at [facility] on 12/12 Subjective: Patient stays in room in bed most of the day. He slept 12.5 hrs last night, and has been lying in bed all day, but claims he is "just lying" there and not sleeping. Patient has been telling staff since last weekend that he inherited a home in [place] and plans to go there after discharge. It's not clear if this is true or not. It seems delusional, but patient told CC today that he's originally from [place]. It's possible he has relatives in [place]. Objective: Vital Signs Temp Pulse Resp BP Pulse Ox 36.4 C 58 L 14 84/53 L 96 12/04/17 06:00 12/04/17 06:00 12/04/17 06:00 12/04/17 06:00 12/04/17 06:00 MSE: Affect: Flat Mood: No response, just shakes his head TP: Paucity of speech, mutism TC: Impoverishment Insight/Judgment: Unable to assess - Time Spent With Patient Time Spent With Patient: 15" - Pending Discharge Pending Discharge Within 24 Hours: No Pending Discharge Within 48 Hours: No ICD10 Worksheet Patient Problems: Problems Problem Status Onset Psychosis Acute Schizophrenia Chronic
--- NOTE | 2017-12-05 07:45 | SOAPPROG ---
SOAP Progress Note Assessment/Plan: Assessment: Schizophrenia, acute psychosis, disorganized, withdrawn. Slight improvement noted, patient has shown very little improvement since admission (see Subjective and Objective). Patient is not safe to discharge at this time as patient continues to exhibit signs of psychosis, and express psychosis symptoms. Patient requires continued inpatient care because of current acute psychosis, and requires inpatient level of care to stabilize in order to no longer be gravely disabled due to mental illness. Patient could benefit from continued inpatient hospitalization for crisis stabilization, safety, and medication evaluation. Plan: (1) Psychotropic medications: After reviewing options, risks, and benefits patient agrees to continue Risperdal M-tab to 3 mg BID, and agrees to continue Ativan 1 mg po BID, and Cogentin 1 mg BID. Patient is currently tolerating Risperdal titration with no s/s of side effects; no s/s EPS. Plan is to continue to observe patient for response and side effects from medications, and ongoing monitoring and evaluation. Patient has shown some improvement at current Risperdal dose, will continue to monitor today and consider increasing Tuesday/Tuesday if no continued improvement. (2) Review with patient informed consent and recommendations for psychotropic medication treatment listed below (3) Labs: no additional labs at this time (4) Therapy: continue milieu and group therapy (5) Further investigation including gathering information from patients relatives and review of past case records to inform treatment plan. (6) Safety/Wellness plan and follow-up outpatient appointments to be established prior to discharge. Next steps are for patient to meet with customer care voice consultant to plan a safe discharge plan and establish outpatient services for ongoing treatment. (7) Confer with inpatient treatment team regarding treatment plan. (8) Legal status: [facility] (9) Consider discharge next week if patient is in stable condition, safe, and has a safe discharge plan. PSYCHOTROPIC MEDICATION TREATMENT INFORMED CONSENT and RECOMMENDATIONS: Review nature of condition, diagnosis, and prognosis. Review nature and purpose of psychotropic medication treatment. Review type of psychotropic medications being ordered. Review risk and benefits of psychotropic medication treatment. Review probable length of time patient will need to take medications. Review risk and benefits of not undergoing psychotropic medication treatment. Review alternative treatments to psychotropic medications. Review psychotropic medications contraindications, drug-drug interactions, side effects, and importance of reporting any side effects to a psychiatric provider or nurse during inpatient hospitalization, and upon discharge to patients psychiatric outpatient provider, primary care provider, or other health customer care team coach. Review importance of asking a nurse, psychiatric provider, or primary care provider any questions or problems concerning the psychotropic medications. Verify patient understands the information that has been provided, and understands, accepts, and agrees to psychotropic medications. Review patients safety plan and importance of patient to report to staff while hospitalized if patient is ever a danger to self/others, or unable to care for self, and upon discharge, the importance for patient to contact [facility] or [facility], or go to the nearest emergency room, if patient is ever a danger to self/others, or unable to care for self. Recommend that upon discharge patient establish medication management treatment with a psychiatric provider, establishes routine therapy appointments, and follow-up with primary care provider. Verify patient understands and agrees to these recommendations. 12/05/17 07:44 Subjective: Following up with patient for evaluation of psychosis and safety. Patient states, "I'm doing okay." When this LINUX SECURITY ADMINISTRATOR asks patient why he is hospitalized patient reports, "I have trouble with my thought, I do not get that." When this LINUX SECURITY ADMINISTRATOR asks patient where he is going to go when he discharges patient states, "I plan to go to [place] where I have a house in [facility]." When this LINUX SECURITY ADMINISTRATOR asks patient if he came from [place] to [place] patient states, "Yes." Patient states he has been hospitalized in [place], and states he cannot remember the name of the hospitals now. When this LINUX SECURITY ADMINISTRATOR asks patient if he has relatives in [place] patient states, "Yes, they are , I do not have that." Patient does not report undesirable side effects from the medications, and agrees to continue current medications. Patient reports appetite as good, and reports eating all meals. Patient describes getting 8 hours of sleep last night. Patient agrees to continue Risperdal M-tab 3 mg SL BID, and agrees to continue Ativan 1 mg TID, and Cogentin 1 mg BID. Patient reports no EPS symptoms. Objective: Vital Signs Temp Pulse Resp BP Pulse Ox 36.4 C 64 14 91/50 L 96 12/05/17 06:00 12/05/17 06:00 12/05/17 06:00 12/05/17 06:00 12/05/17 06:00 NURSING REPORT: Consulted with nursing for update on patients progress in treatment. Nurses report patient is not engaged in treatment, is not attending groups, slept 10 hours; spends majority of time in his room; expresses the following psychiatric symptoms: anxiety; exhibits the following psychiatric symptoms: severely disorganized, paranoid, illogical, non-linear; is eating all meals, is agreeable to medications and taking as prescribed with no report of side effects, with no s/s of EPS/akathisia, and denies SI/HI, denies A/V hallucinations, and denies delusions. RETAIL ATTENDANT UPDATE: establishing discharge plan with [facility] for follow-up after discharge. MD REPORT FROM WEEKEND: Compliant with medications; not much improvement. Reports he came from [place] to [place]. MSE: The patient is a well-nourished male looking stated chronological age. Attire is inappropriate and dress is casual and hospital garb combination. Grooming status is inappropriate and disheveled. Ambulation is independent. Gait is normal and coordinated. Posture is normal and relaxed. Eye contact is inappropriate, and avoided. Motor activity is appropriate with purposeful, organized, coordinated movements; with no involuntary movements. Attitude is uncooperative and guarded. Patient appears distractible and does not relate well to this interviewer. Language production is spontaneous. R/R/V are normal. Articulation is clear. Patient reports mood as okay with incongruent and flat affect. Patients thought process is severely disorganized, non-linear , illogical, with loose associations, tangential thought. Patient does not report suicidal/homicidal thoughts, ideas, or plans. Patient denies auditory, visual hallucinations. Patient reports delusions. Patient does not appear to be attending to internal stimuli. Patients attention and concentration are poor. Patient is oriented to person. Patients insight has improvement notably with mention of being here due to having trouble with his thoughts; judgement is poor. - Time Spent With Patient Time Spent With Patient: 15 minutes, met with patient individually. - Pending Discharge Pending Discharge Within 24 Hours: No Pending Discharge Within 48 Hours: No ICD10 Worksheet Patient Problems: Problems Problem Status Onset Psychosis Acute Schizophrenia Chronic
[2017-12-05] MEDS: LORazepam 1 MG TAB PO SCH ×2 (09:49→20:29)
[2017-12-05] MEDS: RISPERIDONE 2 MG ODT TAB PO SCH ×2 (09:50→20:29)
[2017-12-05] MEDS: BENZTROPINE MESYLATE 1 MG TAB PO SCH ×2 (09:52→20:29)
--- NOTE | 2017-12-06 07:59 | SOAPPROG ---
SOAP Progress Note Assessment/Plan: Assessment: Schizophrenia, acute psychosis, disorganized, withdrawn. Slight improvement noted, patient has shown very slow improvement since admission (see Subjective and Objective). Patient is not safe to discharge at this time as patient continues to exhibit signs of psychosis, and express psychosis symptoms. Patient requires continued inpatient care because of current acute psychosis, and requires inpatient level of care to stabilize in order to no longer be gravely disabled due to mental illness. Patient could benefit from continued inpatient hospitalization for crisis stabilization, safety, and medication evaluation. Plan: (1) Psychotropic medications: After reviewing options, risks, and benefits patient agrees to continue Risperdal M-tab to 3 mg BID, and agrees to continue Ativan 1 mg po QHS, and Cogentin 1 mg BID. Reduce Ativan to 1 mg po QHS as potentially sedating during the day; monitor for response today and re-evaluate indication. Patient is currently tolerating Risperdal titration with no s/s of side effects; no s/s EPS. Plan is to continue to observe patient for response and side effects from medications, and ongoing monitoring and evaluation. Patient has shown some improvement at current Risperdal dose, will continue to monitor today and consider increasing Tuesday/ if no continued improvement. (2) Review with patient informed consent and recommendations for psychotropic medication treatment listed below (3) Labs: no additional labs at this time (4) Therapy: continue milieu and group therapy (5) Further investigation including gathering information from patients relatives and review of past case records to inform treatment plan. (6) Safety/Wellness plan and follow-up outpatient appointments to be established prior to discharge. Next steps are for patient to meet with managed care analyst to plan a safe discharge plan and establish outpatient services for ongoing treatment. (7) Confer with inpatient treatment team regarding treatment plan. (8) Legal status: [facility] (9) Consider discharge next week if patient is in stable condition, safe, and has a safe discharge plan. PSYCHOTROPIC MEDICATION TREATMENT INFORMED CONSENT and RECOMMENDATIONS: Review nature of condition, diagnosis, and prognosis. Review nature and purpose of psychotropic medication treatment. Review type of psychotropic medications being ordered. Review risk and benefits of psychotropic medication treatment. Review probable length of time patient will need to take medications. Review risk and benefits of not undergoing psychotropic medication treatment. Review alternative treatments to psychotropic medications. Review psychotropic medications contraindications, drug-drug interactions, side effects, and importance of reporting any side effects to a psychiatric provider or nurse during inpatient hospitalization, and upon discharge to patients psychiatric outpatient provider, primary care provider, or other health student career development specialist. Review importance of asking a nurse, psychiatric provider, or primary care provider any questions or problems concerning the psychotropic medications. Verify patient understands the information that has been provided, and understands, accepts, and agrees to psychotropic medications. Review patients safety plan and importance of patient to report to staff while hospitalized if patient is ever a danger to self/others, or unable to care for self, and upon discharge, the importance for patient to contact [facility] or [facility], or go to the nearest emergency room, if patient is ever a danger to self/others, or unable to care for self. Recommend that upon discharge patient establish medication management treatment with a psychiatric provider, establishes routine therapy appointments, and follow-up with primary care provider. Verify patient understands and agrees to these recommendations. 12/06/17 07:57 Subjective: Following up with patient for evaluation of psychosis and safety. Patient states, "Doing okay." When this RETAIL PRESENTATION SPECIALIST asks patient where he is going to go when he discharges patient states, "I plan to go to [place] where I have a house in [facility]." Patient reports his grandmother currently lives in this home, and he plans to live there after discharge. Patient states he has been hospitalized in [place], and states he cannot remember the name of the hospitals now. Patient states, "I remember, just cant think of when and where right now. " Patient reports family has moved from [place] to [place]; patient does not provide any further information regarding family whereabouts or previous hospitalizations. Patient continues to report concerns regarding "lobsters being boiled." Patient does not report undesirable side effects from the medications, and agrees to continue current medications. Patient reports appetite as good, and reports eating all meals. Patient describes getting 8 hours of sleep last night. Patient agrees to continue Risperdal M-tab 3 mg SL BID, and agrees to continue Ativan 1 mg po QHS, and Cogentin 1 mg BID. Patient reports no side effects, no reports of EPS symptoms. Objective: Vital Signs Temp Pulse Resp BP Pulse Ox 36.4 C 55 L 14 96/53 L 95 12/06/17 06:00 12/06/17 06:00 12/06/17 06:00 12/06/17 06:00 12/06/17 06:00 NURSING REPORT: Consulted with nursing for update on patients progress in treatment. Nurses report patient is not engaged in treatment, is not attending groups, slept 10 hours last night; spends the majority of the day withdrawn to room, in bed, comes out for meals; expresses the following psychiatric symptoms : anxiety; exhibits the following psychiatric symptoms: severely disorganized, paranoid, illogical, non-linear; is eating all meals, is agreeable to medications and taking as prescribed with no report of side effects, with no s/ s of EPS/akathisia, and denies SI/HI, denies A/V hallucinations, and denies delusions. RESIDENT MANAGER UPDATE: establishing discharge plan with [facility] for follow-up after discharge. MD REPORT FROM WEEKEND: Compliant with medications; not much improvement. Reports he came from [place] to [place]. MSE: The patient is a well-nourished male looking stated chronological age. Attire is inappropriate and dress is casual and hospital garb combination. Grooming status is inappropriate and disheveled. Ambulation is independent. Gait is normal and coordinated. Posture is normal and relaxed. Eye contact is inappropriate, and avoided. Motor activity is appropriate with purposeful, organized, coordinated movements; with no involuntary movements. Attitude is cooperative, at times guarded. Patient appears attentive and does relate well to this interviewer. Language production is spontaneous. R/R/V are normal. Articulation is clear. Patient reports mood as okay with incongruent and flat affect. Patients thought process is disorganized, illogical, with loose associations, tangential thought. Patient does not report suicidal/homicidal thoughts, ideas, or plans. Patient denies auditory, visual hallucinations. Patient reports delusions. Patient does not appear to be attending to internal stimuli. Patients attention and concentration are poor. Patient is oriented to person. Patients insight has improvement notably with mention of being hospitalized due to having trouble with his thoughts; judgement is poor. - Time Spent With Patient Time Spent With Patient: 15 minutes, met with patient individually. - Pending Discharge Pending Discharge Within 24 Hours: No Pending Discharge Within 48 Hours: No ICD10 Worksheet Patient Problems: Problems Problem Status Onset Psychosis Acute Schizophrenia Chronic
[2017-12-06] MEDS: RISPERIDONE 2 MG ODT TAB PO SCH ×2 (08:34→20:17)
[2017-12-06] MEDS: BENZTROPINE MESYLATE 1 MG TAB PO SCH ×2 (08:35→20:16)
--- NOTE | 2017-12-06 13:59 | ASMTCMCOM ---
CM Note CM Note Notes: Client has not made any progress, and will speak to this CC. Client is quite, isolating with flat, restricted affect. Client has an appt with [facility] on 12/12 for intake. CC will try to set up respite and/or custodial for client when discharging. Date Signed: 12/06/2017 01:59 PM Electronically Signed By:Akbar Izquierdo
[2017-12-06] MEDS: LORazepam 1 MG TAB PO SCH (20:17)
--- NOTE | 2017-12-07 08:20 | SOAPPROG ---
SOAP Progress Note Assessment/Plan: Assessment: Schizophrenia, acute psychosis, disorganized, withdrawn. Slight improvement noted, patient is starting to show improvement; notably less disorganized thought process, no longer reporting delusions (see Subjective and Objective). Patient is not safe to discharge at this time as patient continues to exhibit signs of psychosis, and express psychosis symptoms. Patient requires continued inpatient care because of current acute psychosis, and requires inpatient level of care to stabilize in order to no longer be gravely disabled due to mental illness. Patient continues to require direction from staff to perform ADLs and is unable to communicate his needs; patient has not showered, and requires prompting from staff for meals. Patient could benefit from continued inpatient hospitalization for crisis stabilization, safety, and medication evaluation. Plan: (1) Psychotropic medications: After reviewing options, risks, and benefits patient agrees to continue Risperdal M-tab to 3 mg BID, and agrees to continue Ativan 1 mg po QHS, and Cogentin 1 mg BID. Reduce Ativan to 1 mg po QHS as potentially sedating during the day; monitor for response today and re-evaluate indication. Patient is currently tolerating Risperdal titration with no s/s of side effects; no s/s EPS. Plan is to continue to observe patient for response and side effects from medications, and ongoing monitoring and evaluation. Patient has shown some improvement at current Risperdal dose, will continue to monitor today and consider increasing Tuesday/ if no continued improvement. (2) Review with patient informed consent and recommendations for psychotropic medication treatment listed below (3) Labs: no additional labs at this time (4) Therapy: continue milieu and group therapy (5) Further investigation including gathering information from patients relatives and review of past case records to inform treatment plan. (6) Safety/Wellness plan and follow-up outpatient appointments to be established prior to discharge. Next steps are for patient to meet with healthcare advisory services manager to plan a safe discharge plan and establish outpatient services for ongoing treatment. (7) Confer with inpatient treatment team regarding treatment plan. (8) Legal status: [facility] (9) Consider discharge next week if patient is in stable condition, safe, and has a safe discharge plan. (10) Nursing care order: encourage patient to shower PSYCHOTROPIC MEDICATION TREATMENT INFORMED CONSENT and RECOMMENDATIONS: Review nature of condition, diagnosis, and prognosis. Review nature and purpose of psychotropic medication treatment. Review type of psychotropic medications being ordered. Review risk and benefits of psychotropic medication treatment. Review probable length of time patient will need to take medications. Review risk and benefits of not undergoing psychotropic medication treatment. Review alternative treatments to psychotropic medications. Review psychotropic medications contraindications, drug-drug interactions, side effects, and importance of reporting any side effects to a psychiatric provider or nurse during inpatient hospitalization, and upon discharge to patients psychiatric outpatient provider, primary care provider, or other health vision care associate. Review importance of asking a nurse, psychiatric provider, or primary care provider any questions or problems concerning the psychotropic medications. Verify patient understands the information that has been provided, and understands, accepts, and agrees to psychotropic medications. Review patients safety plan and importance of patient to report to staff while hospitalized if patient is ever a danger to self/others, or unable to care for self, and upon discharge, the importance for patient to contact [facility] or [facility], or go to the nearest emergency room, if patient is ever a danger to self/others, or unable to care for self. Recommend that upon discharge patient establish medication management treatment with a psychiatric provider, establishes routine therapy appointments, and follow-up with primary care provider. Verify patient understands and agrees to these recommendations. 12/07/17 08:26 Subjective: Following up with patient for evaluation of psychosis and safety. Patient states, "Doing okay." Patient reports he is hospitalized due to not being able to organize thoughts. Patient reports his thought process has improved since admission. When this MEDICAL COORDINATOR PESTICIDE USE asks patient where he is going to go when he discharges patient states he plans to travel to [place] to visit his ailing grandmother. Patient reports he plans to live with his grandmother after discharge. Patient states he has been hospitalized in [place], [place] at [facility] in either 2007 or 2008. Patient reports he has been on SSDI in the past but it has been paused and needs to be reactivated. Patient reports his family currently resides in [place], and he is not sure where they live. Patient does not report undesirable side effects from the medications, and agrees to continue current medications. Patient reports appetite as good, and reports eating all meals. Patient describes getting 8 hours of sleep last night. Patient agrees to continue Risperdal M-tab 3 mg SL BID, and agrees to continue Ativan 1 mg po QHS, and Cogentin 1 mg BID. Patient reports no side effects, no reports of EPS symptoms. Objective: Vital Signs Temp Pulse Resp BP Pulse Ox 36.3 C 65 15 91/59 L 94 12/07/17 06:00 12/07/17 06:00 12/07/17 06:00 12/07/17 06:00 12/07/17 06:00 NURSING REPORT: Consulted with nursing for update on patients progress in treatment. Nurses report patient is not engaged in treatment, is not attending groups, slept 10 hours last night; spends the majority of the day withdrawn to room, in bed, comes out for meals; expresses the following psychiatric symptoms : anxiety; exhibits the following psychiatric symptoms: disorganized, withdrawn ; is eating all meals, is agreeable to medications and taking as prescribed with no report of side effects, with no s/s of EPS/akathisia, and denies SI/HI, denies A/V hallucinations, and denies delusions. Nursing reports an overall improvement in patient's mentation, better able to organize thoughts, less withdrawn. Patient continues to require direction for ADLs and is unable to communicate his needs. CLINICAL APPEALS RN UPDATE: establishing discharge plan with [facility] for follow-up after discharge. client service coordinator to contact [facility] in [place], [place] to request medical records. MSE: The patient is a well-nourished male looking stated chronological age. Attire is inappropriate and dress is casual and hospital garb combination. Grooming status is inappropriate and disheveled. Ambulation is independent. Gait is normal and coordinated. Posture is normal and relaxed. Eye contact is inappropriate, and avoided. Motor activity is appropriate with purposeful, organized, coordinated movements; with no involuntary movements. Attitude is cooperative, at times guarded. Patient appears attentive and does relate well to this interviewer. Language production is spontaneous. R/R/V are normal. Articulation is clear. Patient reports mood as okay with incongruent and flat affect. Patients thought process is disorganized, illogical, with loose associations, tangential thought. Patient does not report suicidal/homicidal thoughts, ideas, or plans. Patient denies auditory, visual hallucinations. Patient no longer reporting delusions. Patient does not appear to be attending to internal stimuli. Patients attention and concentration are poor. Patient is oriented to person. Patients insight has improvement notably with mention of being hospitalized due to having trouble with his thoughts; judgement is poor. COGNITIVE FUNCTION: Retention / Recall: repeat back these numbers: 5 1 5 0 3 / 9 6 8 3 6 4 2 - without difficulty Abstractions: How is an airplane similar to a bird? "both fly" Memory: Remember these 3 items, ask to repeat back: Pin, Car, Duck. - without difficulty after 5 minutes Judgement: If you were in a restaurant and heard a fire alarm go off, what would you do? "look to see if fire, and leave" If you found a stamped, sealed envelope on the side walk, what would you do with it? 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 Before that? Willow Partida and Wade Gallardo was PATIENT TRANSPORTATION DRIVER - Time Spent With Patient Time Spent With Patient: 30 minutes, met with patient individually and with patient and ocular care technician. - Pending Discharge Pending Discharge Within 24 Hours: No Pending Discharge Within 48 Hours: No ICD10 Worksheet Patient Problems: Problems Problem Status Onset Psychosis Acute Schizophrenia Chronic
[2017-12-07] MEDS: RISPERIDONE 2 MG ODT TAB PO SCH ×2 (08:40→20:25)
[2017-12-07] MEDS: BENZTROPINE MESYLATE 1 MG TAB PO SCH ×2 (08:40→20:25)
--- NOTE | 2017-12-07 13:40 | ASMTCMCOM ---
CM Note CM Note Notes: According to [facility] staff, the patient plans to stay in [place] and seek outpatient treatment with [facility].The patient's cognitive functioning has increased. He remains withdrawn to his room; the patient requires redirection regarding his behavioral plan to engage in the milieu. He continues to have difficulty organizing his thoughts. Date Signed: 12/07/2017 01:39 PM Electronically Signed By:Stephany Purcell
[2017-12-07] MEDS: LORazepam 1 MG TAB PO SCH (20:26)
--- NOTE | 2017-12-08 08:16 | SOAPPROG ---
SOAP Progress Note Assessment/Plan: Assessment: Schizophrenia, acute psychosis, disorganized, withdrawn. Slight improvement noted, patient is starting to show improvement; notably less disorganized thought process, no longer reporting delusions; continues to be withdrawn to room, only out for meals (see Subjective and Objective). Patient is not safe to discharge at this time as patient continues to exhibit signs of psychosis, and express psychosis symptoms. Patient requires continued inpatient care because of current acute psychosis, and requires inpatient level of care to stabilize in order to no longer be gravely disabled due to mental illness. Patient requires direction and prompting from staff to eat meals, is not attending to ADLs, and is unable to communicate his basic needs. Patient could benefit from continued inpatient hospitalization for crisis stabilization, safety, and medication evaluation. Plan: (1) Psychotropic medications: After reviewing options, risks, and benefits patient agrees to continue Risperdal M-tab to 3 mg BID, and agrees to discontinue Ativan 1 mg po QHS due to potential oversedation, and continue Cogentin 1 mg BID. Patient is currently tolerating Risperdal titration with no s/s of side effects; no s/s EPS; patient is showing improvement at current Risperdal dose, will continue to monitor to determine if changes indicated. Plan is to continue to observe patient for response and side effects from medications, and ongoing monitoring and evaluation. (2) Review with patient informed consent and recommendations for psychotropic medication treatment listed below (3) Labs: no additional labs at this time (4) Therapy: continue milieu and group therapy (5) Further investigation including gathering information from patients relatives and review of past case records to inform treatment plan. (6) Safety/Wellness plan and follow-up outpatient appointments to be established prior to discharge. Next steps are for patient to meet with healthcare administration internship to plan a safe discharge plan and establish outpatient services for ongoing treatment. (7) Confer with inpatient treatment team regarding treatment plan. (8) Legal status: [facility] (9) Consider discharge next week if patient is in stable condition, safe, and has a safe discharge plan. PSYCHOTROPIC MEDICATION TREATMENT INFORMED CONSENT and RECOMMENDATIONS: Review nature of condition, diagnosis, and prognosis. Review nature and purpose of psychotropic medication treatment. Review type of psychotropic medications being ordered. Review risk and benefits of psychotropic medication treatment. Review probable length of time patient will need to take medications. Review risk and benefits of not undergoing psychotropic medication treatment. Review alternative treatments to psychotropic medications. Review psychotropic medications contraindications, drug-drug interactions, side effects, and importance of reporting any side effects to a psychiatric provider or nurse during inpatient hospitalization, and upon discharge to patients psychiatric outpatient provider, primary care provider, or other health nurse wound care. Review importance of asking a nurse, psychiatric provider, or primary care provider any questions or problems concerning the psychotropic medications. Verify patient understands the information that has been provided, and understands, accepts, and agrees to psychotropic medications. Review patients safety plan and importance of patient to report to staff while hospitalized if patient is ever a danger to self/others, or unable to care for self, and upon discharge, the importance for patient to contact [facility] or [facility], or go to the nearest emergency room, if patient is ever a danger to self/others, or unable to care for self. Recommend that upon discharge patient establish medication management treatment with a psychiatric provider, establishes routine therapy appointments, and follow-up with primary care provider. Verify patient understands and agrees to these recommendations. 12/08/17 08:18 Subjective: Following up with patient for evaluation of psychosis and safety. Patient states, "Doing okay." Patient reports plans to go to [place] after discharging to visit his grandmother and live in [place]. Patient reports he did not attend any groups yesterday, and remained in his room except for coming out for meals. Patient continues to refuse to attend groups. Patient does not report undesirable side effects from the medications. Patient reports appetite as good, and reports eating all meals. Patient describes getting 8 hours of sleep last night. Patient agrees to continue Risperdal M-tab 3 mg SL BID, and agrees to discontinue Ativan 1 mg po QHS, and continue Cogentin 1 mg BID. Patient reports no side effects, no reports of EPS symptoms. Objective: Vital Signs Temp Pulse Resp BP Pulse Ox 36.4 C 56 L 16 88/49 L 96 12/08/17 06:00 12/08/17 06:00 12/08/17 06:00 12/08/17 06:00 12/08/17 06:00 NURSING REPORT: Consulted with nursing for update on patients progress in treatment. Nurses report patient is not engaged in treatment, is not attending groups, slept 10 hours last night; spends the majority of the day withdrawn to room, in bed, comes out for meals; expresses the following psychiatric symptoms : anxiety; exhibits the following psychiatric symptoms: disorganized, withdrawn ; is eating all meals with prompting from staff, is not attending to ADLs notably shower and hygiene, is agreeable to medications and taking as prescribed with no report of side effects, with no s/s of EPS/akathisia, and denies SI/HI, denies A/V hallucinations, and denies delusions. SEAT COVERS TRIMMER UPDATE: establishing discharge plan with [facility] for follow-up after discharge. charge coordinator to contact [facility] in [place], [place] to request medical records. MSE: The patient is a well-nourished male looking stated chronological age. Attire is inappropriate and dress is casual and hospital garb combination. Grooming status is inappropriate and disheveled, unshaven, malodorous. Ambulation is independent. Gait is normal and coordinated. Posture is normal and relaxed. Eye contact is appropriate. Motor activity is appropriate with purposeful, organized, coordinated movements; with no involuntary movements. Attitude is cooperative, at times guarded. Patient appears attentive and does relate well to this interviewer. Language production is spontaneous. R/R/V are normal. Articulation is clear. Patient reports mood as okay with incongruent and flat affect. Patients thought process is less disorganized, more logical, with less loose associations, less tangential thought. Patient does not report suicidal/homicidal thoughts, ideas, or plans. Patient denies auditory, visual hallucinations. Patient reports delusions. Patient does not appear to be attending to internal stimuli. Patients attention and concentration are poor. Patient is oriented to person, place, time, and situation. Patients insight has improvement notably with mention of being hospitalized due to having trouble with his thoughts; judgement is poor. No evidence of gross cognitive dysfunction at any point during the interview. No evidence of apparent dysfunction in recent or remote memory. COGNITIVE FUNCTION from 12/07/17: Retention / Recall: repeat back these numbers: 5 1 5 0 3 / 9 6 8 3 6 4 2 - without difficulty Abstractions: How is an airplane similar to a bird? "both fly" Memory: Remember these 3 items, ask to repeat back: Pin, Car, Duck. - without difficulty after 5 minutes Judgement: If you were in a restaurant and heard a fire alarm go off, what would you do? "look to see if fire and leave" If you found a stamped, sealed envelope on the side walk, what would you do with it? 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 Before that? Willow Partida AO x4 "I am at the hospital because I have difficulty with thought, organizing my thoughts." - Time Spent With Patient Time Spent With Patient: 15 minutes, met with patient individually. - Pending Discharge Pending Discharge Within 24 Hours: No Pending Discharge Within 48 Hours: No ICD10 Worksheet Patient Problems: Problems Problem Status Onset Psychosis Acute Schizophrenia Chronic
[2017-12-08] MEDS: BENZTROPINE MESYLATE 1 MG TAB PO SCH ×2 (09:46→20:12)
[2017-12-08] MEDS: RISPERIDONE 2 MG ODT TAB PO SCH ×2 (09:46→20:12)
--- NOTE | 2017-12-09 07:36 | SOAPPROG ---
SOAP Progress Note Assessment/Plan: Assessment: Schizophrenia, withdrawn. Slight improvement noted, patient is starting to show improvement; notably less disorganized thought process, no longer reporting delusions; continues to be withdrawn to room, only out for meals (see Subjective and Objective). Patient is not safe to discharge at this time as patient continues to exhibit signs of psychosis, and express psychosis symptoms. Patient requires continued inpatient care because of current acute psychosis, and requires inpatient level of care to stabilize in order to no longer be gravely disabled due to mental illness. Patient requires direction and prompting from staff to eat meals, is not attending to ADLs, and is unable to communicate his basic needs. Patient could benefit from continued inpatient hospitalization for crisis stabilization, safety, and medication evaluation. Plan: (1) Psychotropic medications: After reviewing options, risks, and benefits patient agrees to continue Risperdal M-tab to 3 mg BID and Cogentin 1 mg BID. Patient is currently tolerating Risperdal with no s/s of side effects; no s/s EPS; patient is showing improvement at current Risperdal dose, will continue to monitor to determine if changes indicated. Plan is to continue to observe patient for response and side effects from medications, and ongoing monitoring and evaluation. (2) Review with patient informed consent and recommendations for psychotropic medication treatment listed below (3) Labs: no additional labs at this time (4) Therapy: continue milieu and group therapy (5) Further investigation including gathering information from patients relatives and review of past case records to inform treatment plan. (6) Safety/Wellness plan and follow-up outpatient appointments to be established prior to discharge. Next steps are for patient to meet with animal caregiver to plan a safe discharge plan and establish outpatient services for ongoing treatment. (7) Confer with inpatient treatment team regarding treatment plan. (8) Legal status: [facility] (9) Consider discharge next week if patient is in stable condition, safe, and has a safe discharge plan. (10) Nursing order to encourage increased activity, hygiene, and attend groups. PSYCHOTROPIC MEDICATION TREATMENT INFORMED CONSENT and RECOMMENDATIONS: Review nature of condition, diagnosis, and prognosis. Review nature and purpose of psychotropic medication treatment. Review type of psychotropic medications being ordered. Review risk and benefits of psychotropic medication treatment. Review probable length of time patient will need to take medications. Review risk and benefits of not undergoing psychotropic medication treatment. Review alternative treatments to psychotropic medications. Review psychotropic medications contraindications, drug-drug interactions, side effects, and importance of reporting any side effects to a psychiatric provider or nurse during inpatient hospitalization, and upon discharge to patients psychiatric outpatient provider, primary care provider, or other health medicare biller. Review importance of asking a nurse, psychiatric provider, or primary care provider any questions or problems concerning the psychotropic medications. Verify patient understands the information that has been provided, and understands, accepts, and agrees to psychotropic medications. Review patients safety plan and importance of patient to report to staff while hospitalized if patient is ever a danger to self/others, or unable to care for self, and upon discharge, the importance for patient to contact [facility] or [facility], or go to the nearest emergency room, if patient is ever a danger to self/others, or unable to care for self. Recommend that upon discharge patient establish medication management treatment with a psychiatric provider, establishes routine therapy appointments, and follow-up with primary care provider. Verify patient understands and agrees to these recommendations. 12/09/17 07:34 Subjective: Following up with patient for evaluation of psychosis and safety. Patient states, "Doing okay." Patient reports improved cognition "better able to organize my thoughts" and reports continued desire to remain in room, not attend groups. Patient continue to report plans to go to [place] after discharging to visit his grandmother and live in [place]. Patient reports he did not attend any groups yesterday, and remained in his room except for coming out for meals. Patient does not report undesirable side effects from the medications, and agrees to continue current medications. Patient reports appetite as good, and reports eating all meals. Patient describes getting 9 hours of sleep last night. Patient agrees to continue Risperdal M-tab 3 mg SL BID and Cogentin 1 mg BID. Patient reports no side effects, no reports of EPS symptoms. Objective: Vital Signs Temp Pulse Resp BP Pulse Ox 36.4 C 57 L 16 98/54 L 97 12/09/17 06:00 12/09/17 06:00 12/09/17 06:00 12/09/17 06:00 12/09/17 06:00 NURSING REPORT: Consulted with nursing for update on patients progress in treatment. Nurses report patient is not engaged in treatment, is not attending groups, slept 10 hours last night; spends the majority of the day withdrawn to room, in bed, comes out for meals; expresses the following psychiatric symptoms : anxiety; exhibits the following psychiatric symptoms: withdrawn; is eating all meals with prompting from staff, is not attending to ADLs notably no shower and no hygiene, is agreeable to medications and taking as prescribed with no report of side effects, with no s/s of EPS/akathisia, and denies SI/HI, denies A /V hallucinations, and denies delusions. 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 student services coordinator to contact [facility] in [place], [place] to request medical records. MSE: The patient is a well-nourished male looking stated chronological age. Attire is inappropriate and dress is casual and hospital garb combination. Grooming status is inappropriate and disheveled, unshaven, malodorous. Ambulation is independent. Gait is normal and coordinated. Posture is normal and relaxed. Eye contact is appropriate. Motor activity is appropriate with purposeful, organized, coordinated movements; with no involuntary movements. Attitude is cooperative, at times guarded. Patient appears attentive and does relate well to this interviewer. Language production is spontaneous. R/R/V are normal. Articulation is clear. Patient reports mood as okay with incongruent and flat affect. Patients thought process is less disorganized, more logical, with less loose associations, less tangential thought. Patient does not report suicidal/homicidal thoughts, ideas, or plans. Patient denies auditory, visual hallucinations. Patient reports delusions. Patient does not appear to be attending to internal stimuli. Patients attention and concentration are poor. Patient is oriented to person, place, time, and situation. Patients insight has improvement notably with mention of being hospitalized due to having trouble with his thoughts; judgement is poor. No evidence of gross cognitive dysfunction at any point during the interview. No evidence of apparent dysfunction in recent or remote memory. - Time Spent With Patient Time Spent With Patient: 15 minutes, met with patient individually. - Pending Discharge Pending Discharge Within 24 Hours: No Pending Discharge Within 48 Hours: No ICD10 Worksheet Patient Problems: Problems Problem Status Onset Psychosis Acute Schizophrenia Chronic
[2017-12-09] MEDS: RISPERIDONE 2 MG ODT TAB PO SCH ×2 (08:19→20:53)
[2017-12-09] MEDS: BENZTROPINE MESYLATE 1 MG TAB PO SCH ×2 (08:19→20:55)
--- NOTE | 2017-12-09 13:45 | ASMTCMCOM ---
CM Note CM Note Notes: Met with patient who presents as flat affect no eye contact with poverty of thought and bizarre orientation of words. He presents in supine position, resting for most of the day. He states no si/hi but that "my thoughts are still confused". No update on dc at this time Date Signed: 12/09/2017 01:43 PM Electronically Signed By:Viki Otto
[2017-12-10] MEDS: BENZTROPINE MESYLATE 1 MG TAB PO SCH ×2 (08:04→20:12)
[2017-12-10] MEDS: RISPERIDONE 2 MG ODT TAB PO SCH ×2 (08:04→20:09)
--- NOTE | 2017-12-10 17:14 | SOAPPROG ---
SOAP Progress Note Assessment/Plan: Assessment: Per Jakbo Mcintyre's note: Schizophrenia, withdrawn. Slight improvement noted, patient is starting to show improvement; notably less disorganized thought process, no longer reporting delusions; continues to be withdrawn to room, only out for meals (see Subjective and Objective). Patient is not safe to discharge at this time as patient continues to exhibit signs of psychosis, and express psychosis symptoms. Patient requires continued inpatient care because of current acute psychosis, and requires inpatient level of care to stabilize in order to no longer be gravely disabled due to mental illness. Patient requires direction and prompting from staff to eat meals, is not attending to ADLs, and is unable to communicate his basic needs. Patient could benefit from continued inpatient hospitalization for crisis stabilization, safety, and medication evaluation. 12/09/17 07:34 Subjective: Following up with patient for evaluation of psychosis and safety. Patient states, "Doing okay." Patient reports improved cognition "better able to organize my thoughts" and reports continued desire to remain in room, not attend groups. Patient continue to report plans to go to [place] after discharging to visit his grandmother and live in [place]. Patient reports he did not attend any groups yesterday, and remained in his room except for coming out for meals. Patient does not report undesirable side effects from the medications, and agrees to continue current medications. Patient reports appetite as good, and reports eating all meals. Patient describes getting 9 hours of sleep last night. Patient agrees to continue Risperdal M-tab 3 mg SL BID and Cogentin 1 mg BID. Patient reports no side effects, no reports of EPS symptoms. CURRENT PLAN: 12/10/17 17:11 1. Patient has started to attend groups as part of his behavior plan. However, per staff, he rarely talks and does not participate. 2. Patient took shower today, but did not put on clean clothes. 3. Patient still compliant with his meds. 4. CCM Subjective: Patient remains withdrawn, guarded, silent. He generally follows his new behavior plan to stay out of his room and benefit from milieu therapy. However, whenever he gets a chance, he returns to his room and sleeps. He denies AH/VH, but remains internally preoccupied. Objective: Vital Signs Temp Pulse Resp BP Pulse Ox 36.4 C 69 14 98/58 L 96 12/10/17 06:00 12/10/17 06:00 12/10/17 06:00 12/10/17 06:00 12/10/17 06:00 MSE: Affect: Constricted Mood: "OK" TP: Disorganized, paucity TC: Impoverishment, no SI/HI Insight/Judgment: Poor - Time Spent With Patient Time Spent With Patient: 15" - Pending Discharge Pending Discharge Within 24 Hours: No Pending Discharge Within 48 Hours: No ICD10 Worksheet Patient Problems: Problems Problem Status Onset Psychosis Acute Schizophrenia Chronic
[2017-12-11] MEDS: BENZTROPINE MESYLATE 1 MG TAB PO SCH ×2 (10:22→20:42)
[2017-12-11] MEDS: RISPERIDONE 2 MG ODT TAB PO SCH ×2 (10:24→20:41)
--- NOTE | 2017-12-11 17:07 | SOAPPROG ---
SOAP Progress Note Assessment/Plan: Assessment: Per Jakob Mcintyre's note: Schizophrenia, withdrawn. Slight improvement noted, patient is starting to show improvement; notably less disorganized thought process, no longer reporting delusions; continues to be withdrawn to room, only out for meals (see Subjective and Objective). Patient is not safe to discharge at this time as patient continues to exhibit signs of psychosis, and express psychosis symptoms. Patient requires continued inpatient care because of current acute psychosis, and requires inpatient level of care to stabilize in order to no longer be gravely disabled due to mental illness. Patient requires direction and prompting from staff to eat meals, is not attending to ADLs, and is unable to communicate his basic needs. Patient could benefit from continued inpatient hospitalization for crisis stabilization, safety, and medication evaluation. 12/09/17 07:34 Subjective: Following up with patient for evaluation of psychosis and safety. Patient states, "Doing okay." Patient reports improved cognition "better able to organize my thoughts" and reports continued desire to remain in room, not attend groups. Patient continue to report plans to go to [place] after discharging to visit his grandmother and live in [place]. Patient reports he did not attend any groups yesterday, and remained in his room except for coming out for meals. Patient does not report undesirable side effects from the medications, and agrees to continue current medications. Patient reports appetite as good, and reports eating all meals. Patient describes getting 9 hours of sleep last night. Patient agrees to continue Risperdal M-tab 3 mg SL BID and Cogentin 1 mg BID. Patient reports no side effects, no reports of EPS symptoms. CURRENT PLAN: 12/10/17 17:11 1. Patient has started to attend groups as part of his behavior plan. However, per staff, he rarely talks and does not participate. 2. Patient took shower today, but did not put on clean clothes. 3. Patient still compliant with his meds. 4. [facility] 12/11/17 17:04 1. Patient continues to demonstrate odd behavior and bizarre presentation. Today he was wearing all his clothes at same time. He layered them on top of each other and put hospital gown on over everything. RN requested several times to help patient wash his dirty clothes, but patient refused. 2. Patient still guarded, limited interaction with staff and peers. Unclear if this is d/t years of social isolation or psychosis or both. 3. [facility] Subjective: Patient walking around unit wearing all the clothes in his possession at same time with hospital gown over everything. He refused to allow RN to help him wash his dirty clothes. He's been wearing the same clothes since he arrived. Patient denies any AH/VH, but continues to present as guarded and internally preoccupied. Objective: Vital Signs Temp Pulse Resp BP Pulse Ox 36.3 C 64 16 99/55 L 98 12/11/17 06:00 12/11/17 06:00 12/11/17 06:00 12/11/17 06:00 12/11/17 06:00 MSE: Affective: Constricted Mood: "OK" TP: Disorganized, illogical TC: Denies any SI/HI Insight/Judgment: Poor - Time Spent With Patient Time Spent With Patient: 15" - Pending Discharge Pending Discharge Within 24 Hours: No Pending Discharge Within 48 Hours: No ICD10 Worksheet Patient Problems: Problems Problem Status Onset Psychosis Acute Schizophrenia Chronic
[2017-12-11] MEDS: RISPERIDONE 1 MG ODT TAB PO SCH (20:41)
--- NOTE | 2017-12-12 08:19 | SOAPPROG ---
SOAP Progress Note Assessment/Plan: Assessment: Schizophrenia, withdrawn. Slight improvement noted, patient is starting to show improvement; notably less disorganized thought process, no longer reporting delusions; continues to be withdrawn to room; attends groups and ADLs with prompting/direction from staff (see Subjective and Objective). Patient is not safe to discharge at this time as patient continues to exhibit signs of psychosis, and express psychosis symptoms. Patient requires continued inpatient care because of current acute psychosis, and requires inpatient level of care to stabilize in order to no longer be gravely disabled due to mental illness. Patient requires direction and prompting from staff to eat meals, is not attending to ADLs, and continues to be unable to communicate his basic needs. Patient could benefit from continued inpatient hospitalization for crisis stabilization, safety, and medication evaluation. Next step to plan for safe discharge. Plan: (1) Psychotropic medications: After reviewing options, risks, and benefits patient agrees to continue Risperdal M-tab to 3 mg BID, and Cogentin 1 mg BID. Patient is currently tolerating Risperdal with no s/s of side effects; no s/s EPS; patient is showing improvement at current Risperdal dose, will continue to monitor to determine if changes indicated. Plan is to continue to observe patient for response and side effects from medications, and ongoing monitoring and evaluation. (2) Review with patient informed consent and recommendations for psychotropic medication treatment listed below (3) Labs: no additional labs at this time (4) Therapy: continue milieu and group therapy (5) Further investigation including gathering information from patients relatives and review of past case records to inform treatment plan. (6) Safety/Wellness plan and follow-up outpatient appointments to be established prior to discharge. Next steps are for patient to meet with dog daycare provider to plan a safe discharge plan and establish outpatient services for ongoing treatment. (7) Confer with inpatient treatment team regarding treatment plan. (8) Legal status: [facility] (9) Consider discharge Tuesday if patient is in stable condition, safe, and has a safe discharge plan. PSYCHOTROPIC MEDICATION TREATMENT INFORMED CONSENT and RECOMMENDATIONS: Review nature of condition, diagnosis, and prognosis. Review nature and purpose of psychotropic medication treatment. Review type of psychotropic medications being ordered. Review risk and benefits of psychotropic medication treatment. Review probable length of time patient will need to take medications. Review risk and benefits of not undergoing psychotropic medication treatment. Review alternative treatments to psychotropic medications. Review psychotropic medications contraindications, drug-drug interactions, side effects, and importance of reporting any side effects to a psychiatric provider or nurse during inpatient hospitalization, and upon discharge to patients psychiatric outpatient provider, primary care provider, or other health home health care coordinator. Review importance of asking a nurse, psychiatric provider, or primary care provider any questions or problems concerning the psychotropic medications. Verify patient understands the information that has been provided, and understands, accepts, and agrees to psychotropic medications. Review patients safety plan and importance of patient to report to staff while hospitalized if patient is ever a danger to self/others, or unable to care for self, and upon discharge, the importance for patient to contact [facility] or [facility], or go to the nearest emergency room, if patient is ever a danger to self/others, or unable to care for self. Recommend that upon discharge patient establish medication management treatment with a psychiatric provider, establishes routine therapy appointments, and follow-up with primary care provider. Verify patient understands and agrees to these recommendations. 12/12/17 08:21 Subjective: Following up with patient for evaluation of psychosis and safety. Patient states, "Doing okay, did okay over the weekend. Don't really like going to the groups, would rather stay in room." Patient reports he did attend a group over the weekend and he did shower. Patient reports improved cognition "better thoughts" and reports continued desire to remain in room, not attend groups. Patient reports he will attend groups if reminded by staff. Patient continue to report plans to go to [place] after discharging to visit his grandmother and live in [place]. Patient reports he doesn't know how to contact his grandmother. Patient reports he has family in [place] but doesn't know their number "because they just changed it." Patient provides no additional information regarding social support system. Patient does not report undesirable side effects from medications, and agrees to continue current medications. Patient reports appetite as good, and reports eating all meals. Patient describes getting 9 hours of sleep last night. Patient agrees to continue Risperdal M- tab 3 mg SL BID and Cogentin 1 mg BID. No report of EPS symptoms. Objective: Vital Signs Temp Pulse Resp BP Pulse Ox 36.6 C 68 16 109/61 97 12/12/17 06:00 12/12/17 06:00 12/12/17 06:00 12/12/17 06:00 12/12/17 06:00 NURSING REPORT: Consulted with nursing for update on patients progress in treatment. Nurses report patient is not engaged in treatment, is not attending groups, slept 10 hours last night; spends the majority of the day withdrawn to room, in bed, comes out for meals; patient does attend groups and attend to ADLs (shower/hygiene improved) when prompted and directed by staff to do so; expresses the following psychiatric symptoms: moderate anxiety; exhibits the following psychiatric symptoms: withdrawn, flat affect; is eating all meals with prompting from staff, is agreeable to medications and taking as prescribed with no report of side effects, with no s/s of EPS/akathisia, and denies SI/HI, denies A/V hallucinations, and denies delusions. MILLER HEAD UPDATE: establishing discharge plan with [facility] for follow-up after discharge. permit coordinator to contact [facility] in [place], [place] to request medical records. MD REPORT FROM WEEKEND: noticeable improvement since last weekend. Still limited reality testing and little insight. Does he have any social support system? COLLATERAL TO PLAN FOR DISCHARGE: Continue to interview patient when appropriate to gain additional collateral regarding social support system. Contact [facility] in [place], [place] to request medical records. MSE: The patient is a well-nourished male looking stated chronological age. Attire is inappropriate and dress is casual and hospital garb combination. Grooming status is inappropriate and disheveled, unshaven, malodorous. Ambulation is independent. Gait is normal and coordinated. Posture is normal and relaxed. Eye contact is appropriate. Motor activity is appropriate with purposeful, organized, coordinated movements; with no involuntary movements. Attitude is cooperative, at times guarded. Patient appears attentive and does relate well to this interviewer. Language production is spontaneous. R/R/V are normal. Articulation is clear. Patient reports mood as okay with incongruent and flat affect. Patients thought process is less disorganized, more logical, with less loose associations, less tangential thought. Patient does not report suicidal/homicidal thoughts, ideas, or plans. Patient denies auditory, visual hallucinations. Patient reports delusions. Patient does not appear to be attending to internal stimuli. Patients attention and concentration are poor. Patient is oriented to person, place, time, and situation. Patients insight has improvement notably with mention of being hospitalized due to having trouble with his thoughts; judgement is poor. No evidence of gross cognitive dysfunction at any point during the interview. No evidence of apparent dysfunction in recent or remote memory. - Time Spent With Patient Time Spent With Patient: 15 minutes, met with patient individually. - Pending Discharge Pending Discharge Within 24 Hours: No Pending Discharge Within 48 Hours: No ICD10 Worksheet Patient Problems: Problems Problem Status Onset Psychosis Acute Schizophrenia Chronic
[2017-12-12] MEDS: BENZTROPINE MESYLATE 1 MG TAB PO SCH ×2 (08:33→21:15)
[2017-12-12] MEDS: RISPERIDONE 2 MG ODT TAB PO SCH ×2 (08:33→21:16)
[2017-12-12] MEDS: RISPERIDONE 1 MG ODT TAB PO SCH ×2 (08:34→21:16)
--- NOTE | 2017-12-13 08:02 | SOAPPROG ---
SOAP Progress Note Assessment/Plan: Assessment: Schizophrenia, withdrawn. Slight improvement noted, patient is starting to show improvement; notably less disorganized thought process, no longer reporting delusions; continues to be withdrawn to room; attends groups and ADLs with prompting/direction from staff (see Subjective and Objective). Patient is not safe to discharge at this time as patient continues to exhibit signs of psychosis, and express psychosis symptoms. Patient requires continued inpatient care because of current acute psychosis, and requires inpatient level of care to stabilize in order to no longer be gravely disabled due to mental illness. Patient requires direction and prompting from staff to eat meals, is not attending to ADLs, and continues to be unable to communicate his basic needs. Patient could benefit from continued inpatient hospitalization for crisis stabilization, safety, and medication evaluation. Next step to plan for safe discharge. Patient could benefit from continuity of care; to be escorted to [facility] for appointments on Tuesday after discharge. Plan: (1) Psychotropic medications: After reviewing options, risks, and benefits patient agrees to continue Risperdal M-tab to 3 mg BID, and Cogentin 1 mg BID. Patient is currently tolerating Risperdal with no s/s of side effects; no s/s EPS; patient is showing improvement at current Risperdal dose, will continue to monitor to determine if changes indicated. Plan is to continue to observe patient for response and side effects from medications, and ongoing monitoring and evaluation. (2) Review with patient informed consent and recommendations for psychotropic medication treatment listed below (3) Labs: no additional labs at this time (4) Therapy: continue milieu and group therapy (5) Further investigation including gathering information from patients relatives and review of past case records to inform treatment plan. (6) Safety/Wellness plan and follow-up outpatient appointments to be established prior to discharge. Next steps are for patient to meet with home care consultant to plan a safe discharge plan and establish outpatient services for ongoing treatment. (7) Confer with inpatient treatment team regarding treatment plan. (8) Legal status: [facility] (9) Consider discharge Tuesday if patient is in stable condition, safe, and has a safe discharge plan. PSYCHOTROPIC MEDICATION TREATMENT INFORMED CONSENT and RECOMMENDATIONS: Review nature of condition, diagnosis, and prognosis. Review nature and purpose of psychotropic medication treatment. Review type of psychotropic medications being ordered. Review risk and benefits of psychotropic medication treatment. Review probable length of time patient will need to take medications. Review risk and benefits of not undergoing psychotropic medication treatment. Review alternative treatments to psychotropic medications. Review psychotropic medications contraindications, drug-drug interactions, side effects, and importance of reporting any side effects to a psychiatric provider or nurse during inpatient hospitalization, and upon discharge to patients psychiatric outpatient provider, primary care provider, or other health childbirth and infant care teacher. Review importance of asking a nurse, psychiatric provider, or primary care provider any questions or problems concerning the psychotropic medications. Verify patient understands the information that has been provided, and understands, accepts, and agrees to psychotropic medications. Review patients safety plan and importance of patient to report to staff while hospitalized if patient is ever a danger to self/others, or unable to care for self, and upon discharge, the importance for patient to contact [facility] or [facility], or go to the nearest emergency room, if patient is ever a danger to self/others, or unable to care for self. Recommend that upon discharge patient establish medication management treatment with a psychiatric provider, establishes routine therapy appointments, and follow-up with primary care provider. Verify patient understands and agrees to these recommendations. 12/13/17 08:01 Subjective: Following up with patient for evaluation of psychosis and safety. Patient states, "Feel okay." Patient reports he was "okay" with staying out of his room yesterday, reports he did attend group and spent day in milieu with other patients. Patient agrees to continue with reverse room plan. Patient expresses desire to remain in [facility] after discharging from hospital in order to wait for his SSDI to be reinstated and perhaps work some in order to save money for trip to visit his grandmother in [place]. Patient does not report undesirable side effects from the medications, and agrees to continue current medications. Patient reports appetite as good, and reports eating all meals. Patient describes getting 9 hours of sleep last night. Patient agrees to continue Risperdal M-tab 3 mg SL BID and Cogentin 1 mg BID. No report of EPS symptoms. Objective: Vital Signs Temp Pulse Resp BP Pulse Ox 36.8 C 64 15 108/61 96 12/13/17 06:00 12/13/17 06:00 12/13/17 06:00 12/13/17 06:00 12/13/17 06:00 NURSING REPORT: Consulted with nursing for update on patients progress in treatment. Nurses report patient is not engaged in treatment, is attending groups, slept 10 hours last night; spent the day in the milieu watching TV, did not interact with other patients or staff, withdrawn, flat affect; patient does attend groups and attends to ADLs (shower/hygiene improved) when prompted and directed by staff to do so; expresses the following psychiatric symptoms: moderate anxiety; exhibits the following psychiatric symptoms: withdrawn, flat affect; is eating all meals with prompting from staff, is agreeable to medications and taking as prescribed with no report of side effects, with no s/ s of EPS/akathisia, and denies SI/HI, denies A/V hallucinations, and denies delusions. [employer] UPDATE: establishing discharge plan with [facility] for follow-up after discharge. Patient has appointments set for Tuesday, December 16, 2017 and will be escorted by CC to appointment at [facility] after discharging Tuesday. MD REPORT FROM WEEKEND: noticeable improvement since last weekend. Still limited reality testing and little insight. Does he have any social support system? MSE: The patient is a well-nourished male looking stated chronological age. Attire is inappropriate and dress is casual and hospital garb combination. Grooming status is inappropriate and disheveled, unshaven, malodorous. Ambulation is independent. Gait is normal and coordinated. Posture is normal and relaxed. Eye contact is appropriate. Motor activity is appropriate with purposeful, organized, coordinated movements; with no involuntary movements. Attitude is cooperative, at times guarded. Patient appears attentive and does relate well to this interviewer. Language production is spontaneous. R/R/V are normal. Articulation is clear. Patient reports mood as okay with incongruent and flat affect. Patients thought process is less disorganized, more logical, with less loose associations, less tangential thought. Patient does not report suicidal/homicidal thoughts, ideas, or plans. Patient denies auditory, visual hallucinations. Patient denies delusions. Patient does not appear to be attending to internal stimuli. Patients attention and concentration are poor. Patient is oriented to person, place, time, and situation. Patients insight has improvement notably with mention of being hospitalized due to having trouble with his thoughts; judgement is poor. No evidence of gross cognitive dysfunction at any point during the interview. No evidence of apparent dysfunction in recent or remote memory. - Time Spent With Patient Time Spent With Patient: 15 minutes, met with patient individually. - Pending Discharge Pending Discharge Within 24 Hours: No Pending Discharge Within 48 Hours: No ICD10 Worksheet Patient Problems: Problems Problem Status Onset Psychosis Acute Schizophrenia Chronic
[2017-12-13] MEDS: BENZTROPINE MESYLATE 1 MG TAB PO SCH ×2 (09:01→21:06)
[2017-12-13] MEDS: RISPERIDONE 2 MG ODT TAB PO SCH ×2 (09:01→21:06)
[2017-12-13] MEDS: RISPERIDONE 1 MG ODT TAB PO SCH ×2 (09:02→21:06)
--- NOTE | 2017-12-14 07:00 | SOAPPROG ---
SOAP Progress Note Assessment/Plan: Assessment: Schizophrenia, negative symptoms, withdrawn, diminished emotional expression. Slight improvement noted, patient continues to show improvement; notably less disorganized thought process, no longer reporting delusions; continues to be withdrawn; not attending groups; ADLs with prompting/direction from staff. Patient likely reaching baseline and plan is for patient to discharge Tuesday to outpatient services (see Subjective and Objective). Patient is not safe to discharge at this time as patient continues to exhibit signs of psychosis, and express psychosis symptoms. Patient requires continued inpatient care because of current acute psychosis, and requires inpatient level of care to stabilize in order to no longer be gravely disabled due to mental illness. Patient requires direction and prompting from staff to eat meals, is not attending to ADLs, and continues to be unable to communicate his basic needs. Patient could benefit from continued inpatient hospitalization for crisis stabilization, safety, and medication evaluation. Next step to plan for safe discharge. Patient could benefit from continuity of care; to be escorted to [facility] for appointments on Tuesday after discharge. Plan: (1) Psychotropic medications: After reviewing options, risks, and benefits patient agrees to continue Risperdal M-tab to 3 mg BID, and Cogentin 1 mg BID. Patient is currently tolerating Risperdal with no s/s of side effects; no s/s EPS; patient is showing improvement at current Risperdal dose, will continue to monitor to determine if changes indicated. Patient likely to discharge on current medications. Plan is to continue to observe patient for response and side effects from medications, and ongoing monitoring and evaluation. (2) Review with patient informed consent and recommendations for psychotropic medication treatment listed below (3) Labs: no additional labs at this time (4) Therapy: continue milieu and group therapy (5) Further investigation including gathering information from patients relatives and review of past case records to inform treatment plan. (6) Safety/Wellness plan and follow-up outpatient appointments to be established prior to discharge. Next steps are for patient to meet with transitional care manager to plan a safe discharge plan and establish outpatient services for ongoing treatment. (7) Confer with inpatient treatment team regarding treatment plan. (8) Legal status: [facility] (9) Consider discharge Tuesday if patient is in stable condition, safe, and has a safe discharge plan. PSYCHOTROPIC MEDICATION TREATMENT INFORMED CONSENT and RECOMMENDATIONS: Review nature of condition, diagnosis, and prognosis. Review nature and purpose of psychotropic medication treatment. Review type of psychotropic medications being ordered. Review risk and benefits of psychotropic medication treatment. Review probable length of time patient will need to take medications. Review risk and benefits of not undergoing psychotropic medication treatment. Review alternative treatments to psychotropic medications. Review psychotropic medications contraindications, drug-drug interactions, side effects, and importance of reporting any side effects to a psychiatric provider or nurse during inpatient hospitalization, and upon discharge to patients psychiatric outpatient provider, primary care provider, or other health home care physical therapist. Review importance of asking a nurse, psychiatric provider, or primary care provider any questions or problems concerning the psychotropic medications. Verify patient understands the information that has been provided, and understands, accepts, and agrees to psychotropic medications. Review patients safety plan and importance of patient to report to staff while hospitalized if patient is ever a danger to self/others, or unable to care for self, and upon discharge, the importance for patient to contact [facility] or [facility], or go to the nearest emergency room, if patient is ever a danger to self/others, or unable to care for self. Recommend that upon discharge patient establish medication management treatment with a psychiatric provider, establishes routine therapy appointments, and follow-up with primary care provider. Verify patient understands and agrees to these recommendations. 12/14/17 07:03 Subjective: Following up with patient for evaluation of psychosis and safety. Patient states, "Feeling fine." Patient reports he was "okay" with continuing to stay out of his room during the day, reports he did not attend groups yesterday because "none of them are informative." Patient agrees to continue with reverse room plan. Patient continues to express desire to remain in [facility] after discharging from hospital in order to wait for his SSDI to be reinstated and to "work some in order to save money for trip to visit his grandmother in [place]." Patient agrees to follow-up with [facility] after discharge on Tuesday. Patient does not report undesirable side effects from the medications, and agrees to continue current medications. Patient reports appetite as good, and reports eating all meals. Patient describes getting 9 hours of sleep last night. Patient agrees to continue Risperdal M-tab 3 mg SL BID and Cogentin 1 mg BID. No report of EPS symptoms. Objective: Vital Signs Temp Pulse Resp BP Pulse Ox 36.7 C 70 16 100/57 L 97 12/14/17 06:00 12/14/17 06:00 12/14/17 06:00 12/14/17 06:00 12/14/17 06:00 NURSING REPORT: Consulted with nursing for update on patients progress in treatment. Nurses report patient is not engaged in treatment, is not attending groups, slept 10 hours last night; spent the day in the milieu watching TV, did not interact with other patients or staff, withdrawn, flat affect; attends to ADLs (shower/hygiene improved) when prompted and directed by staff to do so; expresses the following psychiatric symptoms: anxiety; exhibits the following psychiatric symptoms: withdrawn, flat affect; is eating all meals with prompting from staff, is agreeable to medications and taking as prescribed with no report of side effects, with no s/s of EPS/akathisia, and denies SI/HI, denies A/V hallucinations, and denies delusions. [employer] UPDATE: established discharge plan with [facility] for follow-up after discharge. Patient has appointments set for Saturday, December 16, 2017 and will be escorted by CC to appointment at [facility] after discharging Tuesday to ensure continuity of care. [facility] [place], [place] for long-term after discharge. MSE: The patient is a well-nourished male looking stated chronological age. Attire is inappropriate and dress is casual and hospital garb combination. Grooming status is inappropriate and disheveled, unshaven. Ambulation is independent. Gait is normal and coordinated. Posture is normal and relaxed. Eye contact is appropriate. Motor activity is appropriate with purposeful, organized, coordinated movements; with no involuntary movements. Attitude is cooperative, at times guarded. Patient appears attentive and does relate well to this interviewer. Language production is spontaneous. R/R/V are normal. Amount is sparse to monosyllabic. Monotone. Articulation is clear. Patient reports mood as okay with incongruent and flat affect. Patients thought process is less disorganized, more logical, linear, with less loose associations , less tangential thought; overall thought process continues to improve. Patient does not report suicidal/homicidal thoughts, ideas, or plans. Patient denies auditory, visual hallucinations. Patient denies delusions. Patient does not appear to be attending to internal stimuli. Patients attention and concentration are poor. Patient is oriented to person, place, time, and situation. Patients insight and judgment have improved. No evidence of gross cognitive dysfunction at any point during the interview. No evidence of apparent dysfunction in recent or remote memory. - Time Spent With Patient Time Spent With Patient: 15 minutes, met with patient individually. - Pending Discharge Pending Discharge Within 24 Hours: No Pending Discharge Within 48 Hours: Yes Pending Discharge Date: 12/16/17 Pending Discharge Time: 11:00 ICD10 Worksheet Patient Problems: Problems Problem Status Onset Psychosis Acute Schizophrenia Chronic
[2017-12-14] MEDS: BENZTROPINE MESYLATE 1 MG TAB PO SCH ×2 (08:10→21:06)
[2017-12-14] MEDS: RISPERIDONE 2 MG ODT TAB PO SCH ×2 (08:10→21:05)
[2017-12-14] MEDS: RISPERIDONE 1 MG ODT TAB PO SCH ×2 (08:10→21:05)
--- NOTE | 2017-12-14 12:39 | ASMTCMCOM ---
CM Note CM Note Notes: Client has not made any progress, and will speak to this CC. Client is quite, isolating with flat, restricted affect. Client has an appt with [facility] on 12/12 for intake. CC will try to set up respite and/or custodial for client when discharging. Date Signed: 12/14/2017 12:38 PM Electronically Signed By:Akbar Izquierdo
--- NOTE | 2017-12-14 12:44 | ASMTCMCOM ---
CM Note CM Note Notes: Client suggests feeling "okay this morning, doing good...I didn't get much sleep last night." Client noted, receiving roughly less than 8 hours of sleep. Client denies any feelings of anxiety, depression/sadness, S/I-H/I and/or AVH to this loan underwriter. Client did complete his [place] Medicaid application, etc. Client is set to discharge this Tuesday to his [facility] intake appt at 8:30am. If CC is available to walk client over that would be a great handoff.* Date Signed: 12/14/2017 12:43 PM Electronically Signed By:Akbar Izquierdo
--- NOTE | 2017-12-15 07:41 | SOAPPROG ---
SOAP Progress Note Assessment/Plan: Assessment: Schizophrenia, withdrawn. Improvement noted, patient continues to show improvement; notably less disorganized thought process, no longer reporting delusions; continues to be withdrawn; not attending groups; ADLs with prompting/ direction from staff. Patient likely reaching baseline and plan is for patient to discharge Tuesday to outpatient services (see Subjective and Objective). Patient is not safe to discharge at this time as patient continues to exhibit signs of psychosis, and express psychosis symptoms. Patient requires continued inpatient care because of current acute psychosis, and requires inpatient level of care to stabilize in order to no longer be gravely disabled due to mental illness. Patient requires direction and prompting from staff to eat meals, is not attending to ADLs, and continues to be unable to communicate his basic needs. Patient could benefit from continued inpatient hospitalization for crisis stabilization, safety, and medication evaluation. Next step to plan for safe discharge. Patient could benefit from continuity of care; to be escorted to [facility] for appointments on Tuesday after discharge. Plan: (1) Psychotropic medications: After reviewing options, risks, and benefits patient agrees to continue Risperdal M-tab to 3 mg BID, and Cogentin 1 mg BID. Patient is currently tolerating Risperdal with no s/s of side effects; no s/s EPS; patient is showing improvement at current Risperdal dose, will continue to monitor to determine if changes indicated. Patient likely to discharge on current medications. Plan is to continue to observe patient for response and side effects from medications, and ongoing monitoring and evaluation. (2) Review with patient informed consent and recommendations for psychotropic medication treatment listed below (3) Labs: no additional labs at this time (4) Therapy: continue milieu and group therapy (5) Further investigation including gathering information from patients relatives and review of past case records to inform treatment plan. (6) Safety/Wellness plan and follow-up outpatient appointments to be established prior to discharge. Next steps are for patient to meet with managed care liaison to plan a safe discharge plan and establish outpatient services for ongoing treatment. (7) Confer with inpatient treatment team regarding treatment plan. (8) Legal status: [facility] (9) Consider discharge Tuesday if patient is in stable condition, safe, and has a safe discharge plan. PSYCHOTROPIC MEDICATION TREATMENT INFORMED CONSENT and RECOMMENDATIONS: Review nature of condition, diagnosis, and prognosis. Review nature and purpose of psychotropic medication treatment. Review type of psychotropic medications being ordered. Review risk and benefits of psychotropic medication treatment. Review probable length of time patient will need to take medications. Review risk and benefits of not undergoing psychotropic medication treatment. Review alternative treatments to psychotropic medications. Review psychotropic medications contraindications, drug-drug interactions, side effects, and importance of reporting any side effects to a psychiatric provider or nurse during inpatient hospitalization, and upon discharge to patients psychiatric outpatient provider, primary care provider, or other health doggy daycare activities director. Review importance of asking a nurse, psychiatric provider, or primary care provider any questions or problems concerning the psychotropic medications. Verify patient understands the information that has been provided, and understands, accepts, and agrees to psychotropic medications. Review patients safety plan and importance of patient to report to staff while hospitalized if patient is ever a danger to self/others, or unable to care for self, and upon discharge, the importance for patient to contact [facility] or [facility], or go to the nearest emergency room, if patient is ever a danger to self/others, or unable to care for self. Recommend that upon discharge patient establish medication management treatment with a psychiatric provider, establishes routine therapy appointments, and follow-up with primary care provider. Verify patient understands and agrees to these recommendations. 12/15/17 07:39 Subjective: Following up with patient for evaluation of psychosis and safety. Patient states, "Feeling okay today." Patient reports he was good with continuing to stay out of his room during the day, reports he did not attend groups yesterday. Patient agrees to continue with reverse room plan. Patient continues to express desire to remain in [facility] after discharging from hospital, and describes meeting with career and technology education teacher for referrals to homeless prison and outpatient psychiatric services. Patient agrees to follow-up with [facility] after discharge on Tuesday for scheduled appointments. Patient states he looks forward to discharging today. Patient does not report undesirable side effects from the medications, and agrees to continue current medications. Patient reports appetite as good, and reports eating all meals. Patient describes getting 8 hours of sleep last night. Patient agrees to continue Risperdal M-tab 3 mg SL BID and Cogentin 1 mg BID. No report of EPS symptoms. Objective: Vital Signs Temp Pulse Resp BP Pulse Ox 36.8 C 71 16 96/55 L 97 12/15/17 06:00 12/15/17 06:00 12/15/17 06:00 12/15/17 06:00 12/15/17 06:00 NURSING REPORT: Consulted with nursing for update on patients progress in treatment. Nurses report patient continues to not engaged in treatment, is not attending groups, slept 10 hours last night; spent the day in the milieu watching TV, did not interact with other patients or staff, withdrawn, flat affect; attends to ADLs (shower/hygiene improved) when prompted and directed by staff to do so; expresses the following psychiatric symptoms: anxiety; exhibits the following psychiatric symptoms: withdrawn, flat affect; is eating all meals with prompting from staff, is agreeable to medications and taking as prescribed with no report of side effects, with no s/s of EPS/akathisia, and denies SI/HI, denies A/V hallucinations, and denies delusions. 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 Patient has appointments set for Saturday, December 16, 2017 and will be escorted by CC to appointment at [facility] after discharging Tuesday to ensure continuity of care. Patient to have bed reserved at homeless prison in [place], [place] for prison after discharge. MSE: The patient is a well-nourished male looking stated chronological age. Attire is inappropriate and dress is casual and hospital garb combination. Grooming status is inappropriate and disheveled, unshaven. Ambulation is independent. Gait is normal and coordinated. Posture is normal and relaxed. Eye contact is appropriate. Motor activity is appropriate with purposeful, organized, coordinated movements; with no involuntary movements. Attitude is cooperative, at times guarded. Patient appears attentive and does relate well to this interviewer. Language production is spontaneous. R/R/V are normal. Amount is sparse to monosyllabic. Monotone. Articulation is clear. Patient reports mood as okay with incongruent and flat affect. Patients thought process is less disorganized, more logical, linear, with less loose associations , less tangential thought; overall thought process continues to improve. Patient does not report suicidal/homicidal thoughts, ideas, or plans. Patient denies auditory, visual hallucinations. Patient denies delusions. Patient does not appear to be attending to internal stimuli. Patients attention and concentration are poor. Patient is oriented to person, place, time, and situation. Patients insight and judgment have improved. No evidence of gross cognitive dysfunction at any point during the interview. No evidence of apparent dysfunction in recent or remote memory. - Time Spent With Patient Time Spent With Patient: 15 minutes, met with patient individually. - Pending Discharge Pending Discharge Within 24 Hours: Yes Pending Discharge Within 48 Hours: No Pending Discharge Date: 12/16/17 Pending Discharge Time: 11:00 ICD10 Worksheet Patient Problems: Problems Problem Status Onset Psychosis Acute Schizophrenia Chronic
[2017-12-15] MEDS: RISPERIDONE 2 MG ODT TAB PO SCH ×2 (08:57→19:00)
[2017-12-15] MEDS: RISPERIDONE 1 MG ODT TAB PO SCH ×2 (08:57→19:00)
[2017-12-15] MEDS: BENZTROPINE MESYLATE 1 MG TAB PO SCH ×2 (08:57→19:00)
[2017-12-16 06:55] VITALS: BP 96/56
[2017-12-16] MEDS: RISPERIDONE 2 MG ODT TAB PO SCH (08:12)
[2017-12-16] MEDS: RISPERIDONE 1 MG ODT TAB PO SCH (08:12)
[2017-12-16] MEDS: BENZTROPINE MESYLATE 1 MG TAB PO SCH (08:12)
--- NOTE | 2017-12-16 14:24 | BDS ---
REASON FOR ADMISSION: From the ED note dated 11/18/2017, the patient arrived to the emergency room from the [facility] on an M1 hold for grave disability. Patient was unable to care for himself, was unable to communicate effectively, and was recently refusing to eat. The patient presented severely psychotic, delusional, and unable to meet his essential needs without assistance from others. The patient reported he has been in snf for 6 months for bradley offenses. The patient reported paranoid delusions in the ED regarding [employer] and reported is concerned that it was a "federal crisis." The patient was admitted involuntarily on an M1 hold due to being gravely disabled due to mental illness. The patient was admitted for safety, crisis stabilization, and medication evaluation. ADMITTING DIAGNOSES: 1. Schizophrenia. 2. Homelessness. ADMISSION PHYSICAL EXAM: The patient was seen for a history and physical on , for medical clearance for inpatient psychiatric hospitalization and treatment. The patient was medically cleared for inpatient psychiatric hospitalization and treatment. For further details, please refer to history and physical dated 11/20/2017. ADMISSION LABS: 1. CBC from 11/18/2017, within normal limits. 2. BMP from 11/18/2017, within normal limits, except glucose was elevated at 106. 3. Hemoglobin A1c from 11/18/2017, 4.8. 4. Liver function from 11/18/2017, within normal limits, except AST was elevated at 68, and ALT was elevated at 90. 5. Lipid panel from 11/18/2017, within normal limits, except VLDL cholesterol was elevated at 26. 6. Toxicology screen from 11/18/2017, negative for all substances screened and negative for ethyl alcohol. MAJOR PROCEDURES OR TESTS: None. HOSPITAL COURSE: The most prominent symptoms and behaviors while the patient was here were withdrawn to room, diminished emotional affect. The patient reported paranoid delusions. The patient's thought process was disorganized and tangential. The patient also at times was irritable and agitated. Treatment modalities utilized were milieu and group therapy. Risperidone M-tab 1 mg p.o. daily was started to target psychosis symptoms, was titrated to 3 mg p.o. b.i.d. throughout the course of the patient's hospitalization as indicated based on the patient's signs and symptoms of psychosis. The patient tolerated the titration and tolerated the current dose of 3 mg p.o. b.i.d. with no report of side effects and with good response. The most notable response was the patient's thought process was no longer disorganized. The patient's thought process was linear and logical. The patient did continue to be somewhat withdrawn prior to discharge. Cogentin 1 mg p.o. b.i.d. for prophylactic treatment of EPS and was tolerated with no report of side effects and with good response. The patient has improved considerably since admission. The patient reports he has improved since admission, states to be in stable condition, feels safe for discharge, and he contracts for safety. Patient's response to treatment was good. There were no adverse or unexpected results of treatment. The patient was safe throughout his stay, active in treatment, engaged in groups , and was appropriate with staff and other patients. The treatment team consensus is the patient is in stable condition, has a safe discharge plan, and is ready to discharge today. CONDITION ON DISCHARGE: Patient is in stable condition and is no longer a danger to self or others, and is not gravely disabled due to mental illness. Patient is no longer in need of inpatient level of care, and can be safely and effectively treated within the community. The patients level of risk at time of discharge is low. MSE: The patient is casually dressed and with good hygiene , and looks stated age. Patient is sitting, posture is upright, and position is relaxed. Patient appears awake, alert, and responds appropriately and reasonably during interview. Patient is engaged, relates well to interviewer, and emotional facial expression is appropriate to situation and changes appropriately with topic. Patient is cooperative, makes comfortable eye contact , and movements are voluntary, deliberate, coordinated, and smooth and even with no inappropriate movements. Patient makes laryngeal sounds effortlessly and shares conversation appropriately; pace of conversation is appropriate, and stream of talking is fluent; articulation is clear and understandable; word choice is effortless and appropriate for education level; completes sentences, occasionally pausing to think; rate and volume are appropriate for interview and setting. Patient reports mood as euthymic. Patients affect is stable with full variable range, congruent with mood, and appropriate to speech and circumstances. Patient has linear and logical thinking, with no loose associations, tangential thought, thought blocking, concrete thinking, or any other signs of formal thought disorder. Patient denies suicidal and homicidal ideation, and denies hallucinations and delusions. Patient appears to be a reliable historian with sound judgement and good insight into current condition. Patient has no apparent dysfunction in recent or remote memory noted , and no evidence of gross cognitive dysfunction noted at any point during the interview. DISCHARGE DIAGNOSES: 1. Schizophrenia. 2. Homelessness. CURRENT MEDICATIONS: After reviewing options, risks, and benefits with the patient, the patient agrees to continue: 1. Risperidone 3 mg p.o. b.i.d. for psychosis. 2. Cogentin 1 mg p.o. b.i.d. for prophylactic treatment of EPS. The patient requests prescriptions for these medications at time of discharge. Prescriptions for 30 days for each medication are provided. Prescriptions are reviewed with the patient at time of discharge to ensure accuracy and patient understanding. DISPOSITION: The patient left hospital independently and voluntarily and was escorted by our director of home care hospice to the [facility] and plans to continue outpatient services at [facility]. The patient plans to stay at the homeless residential in [place]. Patient describes plan to remain in the [place] area while working to save money for a trip to visit his grandmother in [place]. FOLLOWUP: leasing coordinator reports the appropriate outpatient follow-up services have been established and outpatient appointments have been scheduled. The patient received written instructions with times and dates of outpatient follow-up appointments. The following follow-up recommendations were provided to the patient at discharge: Continue psychotropic medications as prescribed and attend appointments as scheduled. Report any side effects to a psychiatric outpatient provider, a primary care provider, or other health hearing care professional. Address any questions or problems concerning the psychotropic medications with a psychiatric outpatient provider, a primary care provider, or other health hearing care professional. Contact [facility] or [facility], or go to the nearest emergency room, if you are ever a danger to yourself/others, or unable to care for yourself. As soon as possible, establish a routine medication management treatment with a psychiatric provider, establish routine therapy appointments, and follow-up with a primary care provider. LEGAL COURSE: The patient was admitted on an M1 hold for involuntary inpatient psychiatric hospitalization. The patient was placed on a short-term certification during the course of his hospitalization. The patient discharged today independently and voluntarily, and a short-term certification was terminated. ATTITUDE AT TIME OF DISCHARGE: Patient reports he looks forward to discharging today, and agrees to follow-up for outpatient services at [facility] after discharging today. Patient agrees to be escorted to [facility] by director of home care hospice. The patients attitude was positive at time of discharge, and patient reports looking forward to discharging today. The patient reports he feels safe to discharge, is no longer a danger to himself or others, is in stable condition, and contracts for safety. Patient states he will continue medications as prescribed, and establish medication management treatment with an outpatient provider after discharge. Patient reports he understands the information that has been provided to him, and he understands, accepts, and agrees to psychotropic medications. Patient describes internal protective factors as the coping skills he has learned while hospitalized here, and he plans to continue to practice these coping skills after discharge. LABS AND STUDIES: There were no pending labs or studies at time of discharge. ADVANCE DIRECTIVES: There were no advance directives on file, and the patient was full code during this hospitalization. The following psychotropic medication treatment informed consent and recommendations were provided to the patient at time of discharge. Patient reports he understands, accepts, and agrees to the information that has been provided. PSYCHOTROPIC MEDICATION TREATMENT INFORMED CONSENT and RECOMMENDATIONS: Review nature of condition, diagnosis, and prognosis. Review nature and purpose of psychotropic medication treatment. Review type of psychotropic medications being prescribed. Review risk and benefits of psychotropic medication treatment. Review probable length of time will need to take medications. Review risk and benefits of not undergoing psychotropic medication treatment. Review alternative treatments to psychotropic medications. Review psychotropic medications contraindications, side effects, and importance of reporting any side effects to a psychiatric provider, primary care provider, or other health hearing care professional. Review importance of asking a psychiatric provider or primary care provider any questions or problems concerning the psychotropic medications. Review safety plan and the importance to contact [facility] or [facility] , or go to the nearest emergency room, if ever a danger to yourself/others, or unable to care for yourself. Recommend upon discharge to establish routine medication management treatment with a psychiatric provider, establish routine therapy appointments, and follow-up with a primary care provider. Verify patient understands, accepts, and agrees to the information that has been provided. /[id number]
== END 2017-12-16 08:50 | disposition home or self-care (01) | DRG 885 ==
LOC: BBEH 11-19 11:35
PROVIDERS: ADMIT Psychiatry & Neurology Psychiatry; ATTEND Registered Nurse
DX: F20.9 Schizophrenia, unspecified (principal); T43.506A Underdosing of unspecified antipsychotics and neuroleptics, initial encounter; Z59.0 Homelessness; Z87.820 Personal history of traumatic brain injury
CPT/HCPCS: 80305; G0480